=== PATIENT | female | born 1995 | race Hispanic/Latino ===

== ENCOUNTER 2018-04-27 20:34 | Observation (INO) | payer OTHER ==
--- OUTSIDE RECORDS SUMMARY | 2018-04-27 20:36 | XMS REPORT ---
:1995 [facility] Address [address] [place] [address] Dr. Le[address] [place] [id number] Care Team Providers Name Role Phone Unavailable Unavailable Unavailable Problems This patient has no known problems. Allergies, Adverse Reactions, Alerts This patient has no known allergies or adverse reactions. Medications This patient has no known medications.
[2018-04-27] MEDS ORDERED: NA CHLORIDE 0.9% 1,000 ML ONE (21:33)
[2018-04-27] MEDS ORDERED: ONDANSETRON 4 MG/2 ML VIAL ONE (21:33)
[2018-04-27 22:15] LABS: Urine Blood 3+ (NEG); Urine Glucose NEGATIVE (NEG); Urine Protein 3+ (NEG); Urine Specific Gravity >1.030 (1.005-1.030); Urine pH 5.5 (5.0-7.0)
[2018-04-27 22:22] LABS: ALT/SGPT 27 U/L (12-78); AST/SGOT 17 U/L (15-37); Albumin 2.8 g/dL (3.4-5.0); Alkaline Phosphatase 131 U/L (45-117); BUN Blood Urea Nitrogen 12 mg/dL (7-18); Bicarbonate 26 mmol/L (21-32); Bilirubin Direct < 0.1 mg/dL (0-0.2); Bilirubin Total 0.3 mg/dL (0.2-1.0); Glucose Level 89 mg/dL (74-106); Lipase 119 U/L (73-393); Potassium 3.7 mmol/L (3.5-5.1); Protein, Total 7.2 g/dL (6.4-8.2); Sodium Level 140 mmol/L (136-145)
[2018-04-27 22:25] LABS: Absolute Lymphocytes (CBC) 0.4 K/uL (0.7-4.9); Absolute Monocytes 0.5 K/uL (0.1-1.3); Absolute Neutrophil 7.6 K/uL (1.8-8.0); Basophils % 0.2 % (0-1.3); Eosinophils % 0.2 % (0-4.4); Hematocrit 35.9 % (36.0-45.0); Lymphocytes % 5.2 % (15.3-44.8); MPV 8.2 fL (7.6-11.3); Monocytes % 5.6 % (3.3-12.3); RBC Red Blood Cell Count 4.16 M/uL (3.86-4.86)
[2018-04-27 22:52] LABS: Blood Morphology Comment NOT SEEN (NOT SEEN); Platelet Estimate ADEQ; Urine White Blood Cell Casts OK
--- NOTE | 2018-04-27 23:36 | ER ---
Nurse's Notes [facility] Name: Sumaya Whitt Age: 22 yrs Sex: Female : 1995 Arrival Date: 04/27/2018 Time: 20:37 Bed 28 Private MD: Diagnosis: Cholelithiasis;Vomiting;Dehydration Presentation: 04/27 20:56 Presenting complaint: Patient states: Nausea, vomiting, chills, fever that began today; lp1 Diarrhea x 3 days; Denies any burning with urination. Transition of care: patient was not received from another setting of care. Onset of symptoms was April 27, 2018. Risk Assessment: Do you want to hurt yourself or someone else? Patient reports no desire to harm self or others. Initial Sepsis Screen: Does the patient meet any 2 criteria? No. Patient's initial sepsis screen is negative. Does the patient have a suspected source of infection? No. Patient's initial sepsis screen is negative. Care prior to arrival: None. 20:56 Method Of Arrival: Ambulatory lp1 20:56 Acuity: CIARA 3 lp1 INSULATOR TESTER: 20:59 LMP 04/27/2018 lp1 Historical: - Allergies: 20:59 No Known Allergies; lp1 - Home Meds: 20:59 None [Active]; lp1 - PMHx: 20:59 None; lp1 - PSHx: 20:59 ; lp1 - Immunization history:: Adult Immunizations up to date. - Social history:: Smoking status: Patient/guardian denies using tobacco. - Ebola Screening: : No symptoms or risks identified at this time. - Family history:: not pertinent. - Hospitalizations: : No recent hospitalization is reported. Screenin:59 Abuse screen: Denies threats or abuse. Denies injuries from another. Nutritional lp1 screening: No deficits noted. Tuberculosis screening: No symptoms or risk factors identified. Fall Risk None identified. Assessment: 21:05 General: Appears in no apparent distress. obese, Behavior is calm, cooperative, ca1 appropriate for age. Pain: Complains of pain in abdomen Pain does not radiate. Pain currently is 3 out of 10 on a pain scale. Neuro: Level of Consciousness is awake, alert, obeys commands, Oriented to person, place, time, situation. Cardiovascular: Heart tones S1 S2 present Capillary refill < 3 seconds Patient's skin is warm and dry. Respiratory: Airway is patent Respiratory effort is even, unlabored, Respiratory pattern is regular, symmetrical. GI: Abdomen is round non-distended, Bowel sounds present X 4 quads. Abd is soft Abdomen is tender to palpation Reports diarrhea, nausea, vomiting, since 2 days ago. : Urine is cloudy. EENT: No signs and/or symptoms were reported regarding the EENT system. Derm: Skin is intact, is healthy with good turgor, Skin is pink, warm \T\ dry. Musculoskeletal: Circulation, motion, and sensation intact. 22:00 Reassessment: Patient appears in no apparent distress at this time. Patient and/or ca1 family updated on plan of care and expected duration. Pain level reassessed. Patient is alert, oriented x 3, equal unlabored respirations, skin warm/dry/pink. 23:10 Reassessment: Patient appears in no apparent distress at this time. Patient and/or ca1 family updated on plan of care and expected duration. Pain level reassessed. Patient is alert, oriented x 3, equal unlabored respirations, skin warm/dry/pink. Pt eating with significant other at bedside. 04/28 00:30 Reassessment: Patient appears in no apparent distress at this time. Patient and/or ca1 family updated on plan of care and expected duration. Pain level reassessed. Patient is alert, oriented x 3, equal unlabored respirations, skin warm/dry/pink. Dr. Meza at bedside. Vital Signs: 04/27 20:59 BP 139 / 93; Pulse 132; Resp 18; Temp 98.4(O); Pulse Ox 99% on R/A; Weight 119.75 kg lp1 (R); Height 5 ft. 3 in. (160.02 cm); Pain 8/10; 22:02 BP 127 / 83; Pulse 114; Resp 19; Pulse Ox 99% on R/A; ca1 23:10 BP 127 / 96; Pulse 104; Resp 19; Pulse Ox 100% on R/A; ca1 23:14 Temp 100.7; ca1 04/28 00:33 BP 124 / 71; Pulse 102; Resp 19; Pulse Ox 100% on R/A; ca1 04/27 20:59 Body Mass Index 46.77 (119.75 kg, 160.02 cm) lp1 ED Course: 04/27 20:37 Patient arrived in ED. es 20:58 Triage completed. lp1 20:58 Arm band placed on left wrist. lp1 21:05 Will Guaman MD is Attending Physician. rn 21:05 Patient has correct armband on for positive identification. Placed in gown. Bed in low ca1 position. Call light in reach. Side rails up X2. Pulse ox on. NIBP on. Warm blanket given. 21:16 Lidya Mohr, DIXON is Primary Nurse. ca1 21:42 US Abdomen Limited In Process Unspecified. EDMS 21:45 Inserted saline lock: 20 gauge in left antecubital area, using aseptic technique. Blood ca1 collected. 23:35 Henrik Meza MD is Hospitalizing Provider. rn 04/28 00:33 No provider procedures requiring assistance completed. Patient admitted, IV remains in ca1 place. Administered Medications: 04/27 21:50 Drug: NS 0.9% 1000 ml Route: IV; Rate: 1000 ml; Site: left antecubital; ca1 23:54 Follow up: Response: No adverse reaction; IV Status: Completed infusion ca1 04/28 00:34 Follow up: IV Status: Completed infusion ca1 04/27 21:51 Drug: Zofran 4 mg Route: IVP; Site: left antecubital; ca1 23:54 Follow up: Response: No adverse reaction; Nausea is decreased ca1 23:53 Drug: Motrin 800 mg Route: PO; ca1 04/28 00:34 Follow up: Response: No adverse reaction; Temperature is decreased ca1 Outcome: 04/27 23:35 Decision to Hospitalize by Provider. rn 04/28 01:00 Admitted to Tele accompanied by tech, via wheelchair, room 429, with chart, Report ca1 called to Betsy Houser RN Condition: stable Instructed on the need for admit, Demonstrated understanding of instructions. 01:20 Patient left the ED. rv Signatures: Dispatcher [employer] Hoa Murphy Roman, MD MD rn Pena, Laura, RN RN lp1 Karl Jasmine RN RN rv Lidya Mohr RN RN ca1 Corrections: (The following items were deleted from the chart) 04/27 21:00 20:59 119.75 kg Reported; Height 5 ft. 3 in.; BMI: 46.7; Pain 8/10; lp1 lp1
--- NOTE | 2018-04-27 23:36 | EDPHYS ---
Physician Documentation [facility] Name: Sumaya Whitt Age: 22 yrs Sex: Female : 1995 Arrival Date: 04/27/2018 Time: 20:37 Bed 28 Private MD: ED Physician Will Guaman HPI: 04/27 23:31 This 22 yrs old Female presents to ER via Ambulatory with complaints of Fever, rn Vomiting/Diarrhea. 23:31 The patient reports fever, not measured (subjective). Onset: The symptoms/episode rn began/occurred today. Modifying factors: there are no obvious modifying factors. Severity of symptoms: At their worst the symptoms were moderate in the emergency department the symptoms are unchanged. The patient has not experienced similar symptoms in the past. Reports 1 month post-, + fever/chills/vomiting/diarrhea/upper abd pain, began today. . CELL STRIPPER: 20:59 LMP 04/27/2018 lp1 Historical: - Allergies: 20:59 No Known Allergies; lp1 - Home Meds: 20:59 None [Active]; lp1 - PMHx: 20:59 None; lp1 - PSHx: 20:59 ; lp1 - Immunization history:: Adult Immunizations up to date. - Social history:: Smoking status: Patient/guardian denies using tobacco. - Ebola Screening: : No symptoms or risks identified at this time. - Family history:: not pertinent. - Hospitalizations: : No recent hospitalization is reported. ROS: 23:32 Constitutional: + fever/chills Eyes: Negative for injury, pain, redness, and discharge, rn Neck: Negative for injury, pain, and swelling, Cardiovascular: Negative for chest pain, palpitations, and edema, Respiratory: Negative for shortness of breath, cough, wheezing, and pleuritic chest pain, Abdomen/GI: + abd pain/nausea/vomiting Back: Negative for injury and pain, MS/Extremity: Negative for injury and deformity, Skin: Negative for injury, rash, and discoloration, Neuro: Negative for headache, weakness, numbness, tingling, and seizure. Exam: 23:32 Constitutional: This is a well developed, well nourished patient who is awake, alert, rn and in no acute distress. Head/Face: Normocephalic, atraumatic. Eyes: Pupils equal round and reactive to light, extra-ocular motions intact. Lids and lashes normal. Conjunctiva and sclera are non-icteric and not injected. Cornea within normal limits. Periorbital areas with no swelling, redness, or edema. Cardiovascular: Regular rate and rhythm with a normal S1 and S2. No gallops, murmurs, or rubs. Normal PMI, no JVD. No pulse deficits. Respiratory: Lungs have equal breath sounds bilaterally, clear to auscultation and percussion. No rales, rhonchi or wheezes noted. No increased work of breathing, no retractions or nasal flaring. Abdomen/GI: soft, + tender epigastric region, no peritoneal signs, neg adame Skin: Warm, dry with normal turgor. Normal color with no rashes, no lesions, and no evidence of cellulitis. MS/ Extremity: Pulses equal, no cyanosis. Neurovascular intact. Full, normal range of motion. Equal circumference. Vital Signs: 20:59 BP 139 / 93; Pulse 132; Resp 18; Temp 98.4(O); Pulse Ox 99% on R/A; Weight 119.75 kg lp1 (R); Height 5 ft. 3 in. (160.02 cm); Pain 8/10; 22:02 BP 127 / 83; Pulse 114; Resp 19; Pulse Ox 99% on R/A; ca1 23:10 BP 127 / 96; Pulse 104; Resp 19; Pulse Ox 100% on R/A; ca1 23:14 Temp 100.7; ca1 04/28 00:33 BP 124 / 71; Pulse 102; Resp 19; Pulse Ox 100% on R/A; ca1 04/27 20:59 Body Mass Index 46.77 (119.75 kg, 160.02 cm) lp1 MDM: 04/27 21:05 Patient medically screened. rn 23:32 Differential diagnosis: viral Infection, bacterial infection, UTI, gastroenteritis, rn cholecystitis, appendicitis, enteritis. Data reviewed: vital signs, nurses notes, lab test result(s), radiologic studies, ultrasound, and as a result, I will admit patient. Counseling: I had a detailed discussion with the patient and/or guardian regarding: the historical points, exam findings, and any diagnostic results supporting the discharge/admit diagnosis, lab results, radiology results, the need for further work-up and treatment in the hospital. Admission orders: after a detailed discussion of the patient's condition and case, the admit orders are written by me. ED course: Pt with cholelithiasis, elevated alk phos, + febrile and still tachycardic, normal cbc. Consulted with Dr. Mccarthy, will admit to hospitalist service, with GI and surgical consult. Possible early cholecystitis/choledocho. 04/27 21:15 Order name: Basic Metabolic Panel; Complete Time: 22:35 rn 04/27 21:15 Order name: CBC with Diff; Complete Time: 22:55 rn 04/27 21:15 Order name: Hepatic Function; Complete Time: 22:35 rn 04/27 21:15 Order name: Lipase; Complete Time: 22:35 rn 04/27 21:16 Order name: Flu; Complete Time: 22:35 rn 04/27 22:02 Order name: Urine Dipstick--Ancillary (enter results); Complete Time: 22:35 [facility] 04/27 21:15 Order name: IV Saline Lock; Complete Time: 21:58 rn 04/27 21:15 Order name: Labs collected and sent; Complete Time: 21:58 rn 04/27 21:15 Order name: US Abdomen Limited rn 04/27 22:02 Order name: Urine --Ancillary (enter results); Complete Time: 22:35 [facility] 04/27 22:52 Order name: CBC Smear Scan; Complete Time: 22:55 EDAR 04/27 21:15 Order name: Urine Dipstick-Ancillary (obtain specimen); Complete Time: 21:42 rn 04/27 21:15 Order name: Urine Test (obtain specimen); Complete Time: 21:42 rn Administered Medications: 21:50 Drug: NS 0.9% 1000 ml Route: IV; Rate: 1000 ml; Site: left antecubital; ca1 23:54 Follow up: Response: No adverse reaction; IV Status: Completed infusion ca1 04/28 00:34 Follow up: IV Status: Completed infusion ca1 04/27 21:51 Drug: Zofran 4 mg Route: IVP; Site: left antecubital; ca1 23:54 Follow up: Response: No adverse reaction; Nausea is decreased ca1 23:53 Drug: Motrin 800 mg Route: PO; ca1 02/20 00:34 Follow up: Response: No adverse reaction; Temperature is decreased ca1 Disposition: 04/27/18 23:35 Hospitalization ordered by Henrik Meza for Observation. Preliminary diagnosis are Cholelithiasis, Vomiting, Dehydration. - Bed requested for Telemetry/MedSurg (observation). - Status is Observation. rv - Condition is Stable. - Problem is new. - Symptoms have improved. UTI on Admission? No Signatures: Dispatcher [employer] EDMS Elizabeth Ho RN RN Will Guaman MD MD rn Pena, Laura RN RN lp1 Karl Jasmine, RN RN rv Onur, Lidya, RN RN ca1 Corrections: (The following items were deleted from the chart) 00:40 04/27 23:35 Hospitalization Ordered by Henrik Meza MD for Observation. Preliminary diagnosis is Cholelithiasis; Vomiting; Dehydration. Bed requested for Telemetry/MedSurg (observation). Status is Observation. Condition is Stable. Problem is new. Symptoms have improved. UTI on Admission? No. rn 04/28 01:20 00:40 04/27/2018 23:35 Hospitalization Ordered by Henrik Meza MD for Observation. rv Preliminary diagnosis is Cholelithiasis; Vomiting; Dehydration. Bed requested for Telemetry/MedSurg (observation). Status is Observation. Condition is Stable. Problem is new. Symptoms have improved. UTI on Admission? No. mw
[2018-04-28] MEDS ORDERED: IBUPROFEN 400 MG TAB ONE (00:04)
--- NOTE | 2018-04-28 00:59 | P.HP ---
Certification for Inpatient Patient admitted to: Inpatient With expected LOS: >2 Midnights Practitioner: I am a practitioner with admitting privileges, knowledge of patient current condition, hospital course, and medical plan of care. Services: Services provided to patient in accordance with Admission requirements found in Title 42 Section 412.3 of the Code of Federal Regulations Patient History Date of Service: 04/28/18 Reason for admission: cholelithiasis, fever History of Present Illness: Ms Whitt is a 22 years old woman, who recently delivered a baby, came to ED complaining of abdominal pain, associated with nausea and vomiting, fever and diarrhea. Her symptoms started this morning. Abdominal pain is localized on epigastric area and RUQ. No fever in ER. No fever, Lab work shows normal WBC count, normal transaminases with mildly elevated alk phos. UA has 3+ blood and 3 + proteines. Gallbladder US shows cholelithiasis, normal gallbladder wall and CBD diameter. Allergies NKDA Allergy (Uncoded 02/20/15 14:31) Unknown Home medications list reviewed: Yes - Past Medical/Surgical History -: obesity Past Surgical History: Reviewed- Non-Contributory - Family History Family History: Reviewed- Non-Contributory - Social History Smoking Status: Former smoker Alcohol use: Yes CD- Drugs: No Place of Residence: Home Review of Systems 10-point ROS is otherwise unremarkable Physical Examination - Physical Exam General: Alert, In no apparent distress HEENT: Atraumatic, PERRLA, Mucous membr. moist/pink, EOMI, Sclerae nonicteric Neck: Supple, 2+ carotid pulse no bruit, No LAD, Without JVD or thyroid abnormality Respiratory: Clear to auscultation bilaterally, Normal air movement Cardiovascular: Regular rate/rhythm, Normal S1 S2 Gastrointestinal: Normal bowel sounds, Tenderness (RUQ and epigastrium to palpation.) Musculoskeletal: No tenderness Integumentary: No rashes Neurological: Normal speech, Normal strength at 5/5 x4 extr, Normal tone, Normal affect Lymphatics: No axilla or inguinal lymphadenopathy - Studies Laboratory Data (last 24 hrs) 04/27/18 21:52: WBC 8.5, Hgb 11.8 L, Hct 35.9 L, Plt Count 333 04/27/18 21:52: Sodium 140, Potassium 3.7, BUN 12, Creatinine 1.17, Glucose 89, Total Bilirubin 0.3, AST 17, ALT 27, Alkaline Phosphatase 131 H, Lipase 119 Microbiology Data (last 24 hrs): 04/27/18 21:52 Nasopharnyx Influenza Type A Antigen Screen - Final 04/27/18 21:52 Nasopharnyx Influenza Type B Antigen Screen - Final Assessment and Plan - Problems (Diagnosis) (1) Cholelithiasis Current Visit: Yes Status: Acute Qualifiers: Cholelithiasis location: gallbladder Cholecystitis presence: without cholecystitis Biliary obstruction: without biliary obstruction Qualified Code(s): K80.20 - Calculus of gallbladder without cholecystitis without obstruction (2) Fever Current Visit: Yes Status: Acute Qualifiers: Fever type: unspecified Qualified Code(s): R50.9 - Fever, unspecified (3) Nausea and vomiting Current Visit: Yes Status: Acute Qualifiers: Vomiting type: unspecified Vomiting Intractability: unspecified Qualified Code(s): R11.2 - Nausea with vomiting, unspecified - Plan Will admit the patient due to cholelithiasis with fever. No clear etiology. Will order CT abd/pelvis, continue NPO, start empiric antibiotics, Dr Mccarthy will see the patient. - Advance Directives Does patient have a Living Will: No Does patient have a Durable POA for Healthcare: No - Code Status/Comfort Care Code Status Assessed: Yes Code Status: Full Code
[2018-04-28] MEDS ORDERED: ONDANSETRON 4 MG/2 ML VIAL IV PRN (01:24)
[2018-04-28] MEDS ORDERED: ACETAMINOPHEN 500 MG TAB PO PRN (01:24)
[2018-04-28] MEDS: NA CHLORIDE 0.9% 1,000 ML IV SCH ×2 (02:18→11:24)
[2018-04-28 02:24] VITALS: BMI 47.1
[2018-04-28] MEDS ORDERED: CIPROFLOXACIN 400mg IV 400 MG/200 ML BAG IV SCH (03:00)
[2018-04-28 03:07] VITALS: O2SAT 100
[2018-04-28] MEDS: METRONIDAZOLE 500mg IVPB 500 MG/100 ML BAG IV SCH ×2 (03:21→08:24)
--- NOTE | 2018-04-28 08:18 | RAD REPORT ---
EXAM DESCRIPTION: US - Abdomen Exam Limited - 04/27/2018 9:41 pm CLINICAL HISTORY: Abdominal pain. FINDINGS: Multiple small gallstones. The gallbladder wall is not thickened The biliary tree is normal caliber. IMPRESSION: Cholelithiasis without evidence cholecystitis
[2018-04-28 14:53] VITALS: BP 136/75; TEMP 98
--- NOTE | 2018-04-28 17:41 | CON ---
Date of Consultation: 04/28/2018 Brief History Of Present Illness: The patient is a 22-year-old female, who recently had a b adonay, who came to the ER with complaints of abdominal pain beginning approximately yesterday, associat ed with nausea, vomiting, and some diarrhea. The diarrhea was persistent over the course of approxim ately 2 days, and she had some subjective fevers however she did not check the actual amount. Her sy mptoms did not progress more than 1 day prior to this. She has had primarily pain located in the epi gastric right upper quadrant. She states that the pain had no other radiation. Otherwise, she has n ot had similar episodes before in the past of this severity, but has had some minor episodes of simil arity before in the past, but nothing on this level. She believes it is associated with greasy meals recently eaten. Otherwise, no other aggravating or alleviating factors. No sick contacts. No rece nt travel. Past Medical History: Significant for obesity. Past Surgical History: Negative. Family History: Reviewed, noncontributory. Social History: She states she quit smoking. She drinks alcohol recreationally. She denies any rec reational drug use. Allergies: NO KNOWN DRUG ALLERGIES. Medications: Include no home medications. Review of Systems: A 10-point review of systems other than HPI, denies. Physical Examination: General: At the time of my examination, she is awake, alert, and oriented. Her BMI is 47.1. Vital Signs: Her blood pressure 134/83, pulse of 65, respiratory rate 16, temperature 97.0. Psychiatric: She is appropriate, conversive. HEENT: She is normocephalic. Sclerae icteric. Mucous membranes are moist. Oropharynx clear. Neck: Supple. No JVD. Chest: Normal expansion and excursion. Cardiovascular: Regular rate and rhythm. Pulmonary: Clear to auscultation bilaterally. Abdomen: Soft, nontender, nondistended. No rebound. No guarding. No focal peritonitis. Negative Howard sign. No hernia is appreciated. Abdomen is essentially benign and obese. Extremities: No clubbing, cyanosis, or edema. Skin: Warm and dry. Laboratory Data: Reveals white blood cell count of 8.5, hemoglobin 11.8 over hematocrit of 35.9, mikaela telet count is 333, neutrophils are 88.8%. Her sodium is 140, potassium 3.7, chloride 108, carbon di oxide 26, BUN 12, creatinine 1.1, glucose is 89, calcium 8.2, total bilirubin 0.3, direct bilirubin 0 .2, AST 17, ALT 27, alkaline phosphatase of 131, lipase is 119. UA showed 3+ total protein, negative urine test, 3+ blood. She had a CT scan of the abdomen and pelvis as well as an abdominal ultrasound. The abdominal ultrasound was officially read as multiple small gallstones. Gallbladder wall is not thickened. The biliary tree is normal in caliber. The official impression is cholelith iasis without evidence of cholecystitis. CT scan exam is currently pending. Assessment And Plan: This is a 22-year-old female who came in with symptomatic cholelithiasis, now w ith essentially no abdominal pain and a benign abdominal exam. 1.Start p.o. hydration and advance diet as tolerated to a nongreasy meal. 2.I explained risks, benefits, and alternatives of operative versus nonoperative management. She ag jaime to proceed with nonoperative management. The time to include dietary modification, to be on a s trict gallbladder diet, and return to my clinic within 2 weeks with any concerns regarding her change in mind so that she can consider surgical intervention at that time, which would be a laparoscopic c holecystectomy, possible open, and indicated procedures. She would like to proceed however with nono perative management and as such, I recommend starting diet as described above. Thank you for this interesting consult. SHAI/BRIGITTE Voice ID: [id number] Report ID: [id number]
--- NOTE | 2018-04-28 18:24 | RAD REPORT ---
EXAM DESCRIPTION: CT - Abdomen Pelvis Wo Contrast - 04/28/2018 6:04 am CLINICAL HISTORY: 22-year-old female with abdominal pain. TECHNIQUE: Axial CT images of the abdomen and pelvis was performed. Sagittal and coronal reconstructed images we re then performed. The CT study is performed according to ALARA (as low as reasonably achievable) or ALARA/IMAGE GENTLY, with automatic adjustment of mA and/or kV according to patient size. Performed on: 04/28/2018 at 5:35 AM COMPARISON: None. FINDINGS: Lung bases: The lung bases are clear. ABDOMEN: Liver: The liver is normal in size and configuration. No focal hepatic abnormalities are appreciated on this unenhanced scan. Liver attenuation is within normal limits. Gallbladder and bile duct: The gallbladder is well distended. There is increased density layering wit hin the dependent portion of the gallbladder lumen which may reflect small stones or sludge. There is no biliary ductal dilatation. Pancreas: The pancreas is grossly normal in size and configuration. Spleen:The spleen is normal in size, configuration and attenuation. No focal splenic abnormalities ar e appreciated on this unenhanced scan. Adrenal: Glands: The adrenal glands are normal in size and configuration. Kidneys: The kidneys are normal in size and configuration. There is no evidence of hydronephrosis. Th ere is no evidence of nephrolithiasis. No focal renal abnormalities are identified. Stomach: The stomach is grossly normal. There is no definite hiatal hernia. Bowel: The bowel gas pattern is non specific and non obstructive. Appendix: The appendix is normal. Free air: There is no evidence of free air. Free fluid: There is no evidence of free fluid. Vasculature: The aorta is normal in caliber and contour. The interior vena cava is grossly unremarkab le. Lymphadenopathy: No pathologic lymphadenopathy is identified. Bladder: The bladder is well distended and smooth in contour. Reproductive: The uterus is grossly within normal limits. Bones: No acute osseous abnormalities are identified. Soft tissues: No focal soft tissue abnormalities are identified. There is very mild infiltration of t he subcutaneous fat along the lower anterior abdominal wall. IMPRESSION: 1. Sludge and/or stones within the dependent portion of the gallbladder lumen. 2. Otherwise, unremarkable unenhanced CT scan of the abdomen and pelvis. There is very mild nonspecif ic infiltration of the subcutaneous fat along the lower anterior abdominal wall. Electronically signed by Janet Shukla DO 04/28/2018 5:55 AM BAIL ATTACHER Due to temporary technical issues with the PACS/Fluency reporting system, reports are being signed by the in house radiologist as a courtesy to ensure prompt reporting. The interpreting radiologist is f ully responsible for the content of the report.
== END 2018-04-28 16:48 | disposition home or self-care (01) ==
LOC: ER 20:34 → INTOOBSV 04-28 00:43 → ERHOLD 04-28 00:43 → 4TH 04-28 01:08
PROVIDERS: ADMIT Internal Medicine; ATTEND Internal Medicine
DX: O99.63 Diseases of the digestive system complicating the puerperium (principal); K80.20 Calculus of gallbladder without cholecystitis without obstruction; E66.9 Obesity, unspecified; Z68.42 Body mass index [BMI] 45.0-49.9, adult
CPT/HCPCS: 36415; 74176; 76705; 80048; 80076; 81003; 81025; 83690; 85025; 87804; 96361; 96374; 99285; G0378; J0744; J2405; J7030

== ENCOUNTER 2018-04-30 02:33 | Emergency (ER) | payer OTHER ==
--- OUTSIDE RECORDS SUMMARY | 2018-04-30 02:35 | XMS REPORT ---
:1995 Author Organization [facility] Address [address] [place] [address] Dr. Leos [address] [place] [id number] Care Team Providers Name Role Phone Unavailable Unavailable Unavailable Problems This patient has no known problems. Allergies, Adverse Reactions, Alerts This patient has no known allergies or adverse reactions. Medications This patient has no known medications.
[2018-04-30 04:12] LABS: Absolute Lymphocytes (CBC) 0.9 K/uL (0.7-4.9); Absolute Monocytes 0.6 K/uL (0.1-1.3); Basophils % 0.4 % (0-1.3); Hematocrit 33.5 % (36.0-45.0); Lymphocytes % 13.5 % (15.3-44.8); MPV 8.1 fL (7.6-11.3); Monocytes % 8.6 % (3.3-12.3)
[2018-04-30 04:24] LABS: ALT/SGPT 32 U/L (12-78); AST/SGOT 28 U/L (15-37); Alkaline Phosphatase 145 U/L (45-117); BUN Blood Urea Nitrogen 14 mg/dL (7-18); Bicarbonate 27 mmol/L (21-32); Bilirubin Direct < 0.1 mg/dL (0-0.2); Bilirubin Total 0.2 mg/dL (0.2-1.0); Glucose Level 103 mg/dL (74-106); Lipase 158 U/L (73-393); Protein, Total 7.1 g/dL (6.4-8.2); Sodium Level 142 mmol/L (136-145)
--- NOTE | 2018-04-30 04:58 | ER ---
Nurse's Notes [facility] Name: Sumaya Whitt Age: 22 yrs Sex: Female : 1995 Arrival Date: 04/30/2018 Time: 02:34 Bed 14 Private MD: Diagnosis: Upper abdominal pain, unspecified Presentation: 04/30 02:40 Presenting complaint: Patient states: that she was here 2 days ago and was diagnosis fc with gallstones. She felt ok and was sent home. Then approx 20 minutes [employer] she started to have severe right upper abd pain along with epigastric pain. Also has nausea, vomiting and diarrhea. Transition of care: patient was not received from another setting of care. Onset of symptoms was April 30, 2018 at 02:20. Risk Assessment: Do you want to hurt yourself or someone else? Patient reports no desire to harm self or others. Initial Sepsis Screen: Does the patient meet any 2 criteria? No. Patient's initial sepsis screen is negative. Does the patient have a suspected source of infection? No. Patient's initial sepsis screen is negative. Care prior to arrival: None. 02:40 Method Of Arrival: Ambulatory 02:40 Acuity: CIARA 3 fc WEAVER HAND: 02:40 [facility] 04/24/2018 fc Historical: - Allergies: 03:12 No Known Allergies; fc - Home Meds: 03:12 None [Active]; fc - PMHx: 03:12 Gallstones; fc - PSHx: 03:12 ; fc - Immunization history:: Last tetanus immunization: up to date Flu vaccine is up to date. - Social history:: Smoking status: Patient/guardian denies using tobacco. - Ebola Screening: : Patient negative for fever greater than or equal to 101.5 degrees Fahrenheit, and additional compatible Ebola Virus Disease symptoms Patient denies exposure to infectious person Patient denies travel to an Ebola-affected area in the 21 days before illness onset. Screenin:58 Abuse screen: Denies threats or abuse. Nutritional screening: No deficits noted. fc Tuberculosis screening: No symptoms or risk factors identified. Fall Risk None identified. Assessment: 03:30 General: Appears in no apparent distress. Behavior is calm, cooperative, appropriate ea for age. Pain: Complains of pain in right upper quadrant. Neuro: Level of Consciousness is awake, alert, obeys commands, Oriented to person, place, time, situation. Respiratory: Airway is patent Respiratory effort is even, unlabored, Respiratory pattern is regular, symmetrical. GI: Abdomen is non-distended, obese. : No signs and/or symptoms were reported regarding the genitourinary system. Derm: Skin is dry, Skin is pale, Skin temperature is warm. 04:41 Reassessment: Patient and/or family updated on plan of care and expected duration. Pain ea level reassessed. Patient is alert, oriented x 3, equal unlabored respirations, skin warm/dry/pink. 05:35 Reassessment: Patient and/or family updated on plan of care and expected duration. Pain ea level reassessed. Patient is alert, oriented x 3, equal unlabored respirations, skin warm/dry/pink. Discharge instructions given to patient, verbalized the understanding of instruction. Vital Signs: 02:40 BP 129 / 91; Pulse 86; Resp 20; Temp 98.9(O); Pulse Ox 100% on R/A; Weight 119.75 kg fc (R); Height 5 ft. 3 in. (160.02 cm) (R); Pain 10/10; 03:50 BP 120 / 78; Pulse 90; Resp 18; Pulse Ox 99% ; ea 04:50 BP 128 / 62; Pulse 88; Resp 18; Pulse Ox 99% ; ea 02:40 Body Mass Index 46.77 (119.75 kg, 160.02 cm) ED Course: 02:34 Patient arrived in ED. ds1 02:40 Arm band placed on Patient placed in an exam room, on a stretcher. fc 02:56 Castro Mcgovern MD is Attending Physician. gs 02:57 Triage completed. fc 03:15 Loni Arreguin RN is Primary Nurse. ea 03:30 Patient has correct armband on for positive identification. Bed in low position. Call ea light in reach. Side rails up X2. 04:10 Inserted saline lock: 22 gauge in right antecubital area, using aseptic technique. ea Blood collected. 04:58 Manny Staton MD is Referral Physician. gs 05:35 No provider procedures requiring assistance completed. IV discontinued, intact, ea bleeding controlled, No redness/swelling at site. Pressure dressing applied. Administered Medications: No medications were administered Outcome: 04:58 Discharge ordered by . gs 05:35 Condition: improved ea 05:35 Discharge instructions given to patient, Instructed on discharge instructions, follow up and referral plans. medication usage, Demonstrated understanding of instructions, follow-up care, medications, Prescriptions given X 2. 05:41 Discharged to home ambulatory, with significant other. ea 05:42 Patient left the ED. ea Signatures: Sindi Cantor RN Ileana Beard ds1 Loni Arreguin RN RN ea Starr, Gregory, MD MD gs
--- NOTE | 2018-04-30 04:59 | EDPHYS ---
Physician Documentation [facility] Name: Sumaya Whitt Age: 22 yrs Sex: Female : 1995 Arrival Date: 04/30/2018 Time: 02:34 Bed 14 Private MD: ED Physician Castro Mcgovern HPI: 04/30 04:56 This 22 yrs old Female presents to ER via Ambulatory with complaints of gs Gallbladder Pain, Nausea/Vomiting. 04:56 The patient presents to the emergency department with nausea, vomiting, abdominal pain, gs of the right upper quadrant and right lower quadrant. Onset: The symptoms/episode began/occurred acutely, 3 day(s) ago. Possible causes: unknown. The symptoms are aggravated by nothing. The symptoms are alleviated by nothing. Associated signs and symptoms: Pertinent positives: abdominal pain. Severity of symptoms: At their worst the symptoms were severe in the emergency department the symptoms have improved markedly. The patient has experienced similar episodes in the past, several times. The patient has been recently been admitted at [facility], was discharged yesterday. [place]: 02:40 LMP 04/24/2018 fc Historical: - Allergies: 03:12 No Known Allergies; fc - Home Meds: 03:12 None [Active]; fc - PMHx: 03:12 Gallstones; fc - PSHx: 03:12 ; fc - Immunization history:: Last tetanus immunization: up to date Flu vaccine is up to date. - Social history:: Smoking status: Patient/guardian denies using tobacco. - Ebola Screening: : Patient negative for fever greater than or equal to 101.5 degrees Fahrenheit, and additional compatible Ebola Virus Disease symptoms Patient denies exposure to infectious person Patient denies travel to an Ebola-affected area in the 21 days before illness onset. ROS: 04:56 All other systems are negative. gs Exam: 04:56 Head/Face: Normocephalic, atraumatic. Eyes: Pupils equal round and reactive to light, gs extra-ocular motions intact. Lids and lashes normal. Conjunctiva and sclera are non-icteric and not injected. Cornea within normal limits. Periorbital areas with no swelling, redness, or edema. ENT: Nares patent. No nasal discharge, no septal abnormalities noted. Tympanic membranes are normal and external auditory canals are clear. Oropharynx with no redness, swelling, or masses, exudates, or evidence of obstruction, uvula midline. Mucous membranes moist. Neck: Trachea midline, no thyromegaly or masses palpated, and no cervical lymphadenopathy. Supple, full range of motion without nuchal rigidity, or vertebral point tenderness. No Meningismus. Chest/axilla: Normal chest wall appearance and motion. Nontender with no deformity. No lesions are appreciated. Cardiovascular: Regular rate and rhythm with a normal S1 and S2. No gallops, murmurs, or rubs. Normal PMI, no JVD. No pulse deficits. Respiratory: Lungs have equal breath sounds bilaterally, clear to auscultation and percussion. No rales, rhonchi or wheezes noted. No increased work of breathing, no retractions or nasal flaring. Back: No spinal tenderness. No costovertebral tenderness. Full range of motion. Skin: Warm, dry with normal turgor. Normal color with no rashes, no lesions, and no evidence of cellulitis. MS/ Extremity: Pulses equal, no cyanosis. Neurovascular intact. Full, normal range of motion. Neuro: Awake and alert, GCS 15, oriented to person, place, time, and situation. Cranial nerves II-XII grossly intact. Motor strength 5/5 in all extremities. Sensory grossly intact. Cerebellar exam normal. Normal gait. 04:56 Constitutional: The patient appears alert, awake. 04:56 Abdomen/GI: Palpation: mild abdominal tenderness, in the right upper quadrant and right lower quadrant, rebound tenderness, is not appreciated. Vital Signs: 02:40 BP 129 / 91; Pulse 86; Resp 20; Temp 98.9(O); Pulse Ox 100% on R/A; Weight 119.75 kg fc (R); Height 5 ft. 3 in. (160.02 cm) (R); Pain 10/10; 03:50 BP 120 / 78; Pulse 90; Resp 18; Pulse Ox 99% ; ea 04:50 BP 128 / 62; Pulse 88; Resp 18; Pulse Ox 99% ; ea 02:40 Body Mass Index 46.77 (119.75 kg, 160.02 cm) MDM: 03:02 Patient medically screened. 04:56 Differential diagnosis: Nonspecific abd pain, gastritis, cholecystitis, pancreatitis. gs Data reviewed: vital signs, nurses notes. Counseling: I had a detailed discussion with the patient and/or guardian regarding: the historical points, exam findings, and any diagnostic results supporting the discharge/admit diagnosis, lab results, the need for outpatient follow up. Response to treatment: the patient's symptoms have markedly improved after treatment, and as a result, I will discharge patient. 05:16 ED course: PRECAUTIONS GIVEN FOR BREAST FEEDING. 04/30 03:02 Order name: Basic Metabolic Panel 04/30 03:02 Order name: CBC with Diff 04/30 03:02 Order name: Hepatic Function 04/30 03:02 Order name: Lipase 04/30 04:15 Order name: CBC with Automated Diff; Complete Time: 04:56 EDMS 04/30 04:26 Order name: Basic Metabolic Panel; Complete Time: 04:56 EDMS 04/30 03:02 Order name: IV Saline Lock; Complete Time: 03:58 04/30 03:02 Order name: Labs collected and sent; Complete Time: 04:22 04/30 04:26 Order name: Liver (Hepatic) Function; Complete Time: 04:56 EDMS 04/30 04:26 Order name: Lipase; Complete Time: 04:56 EDMS Administered Medications: No medications were administered Disposition: 04/30/18 04:58 Discharged to Home. Impression: Upper abdominal pain, unspecified. - Condition is Stable. - Discharge Instructions: Abdominal Pain, Adult. - Prescriptions for Tylenol- Codeine #4 300-60 mg Oral Tablet - take 1 tablet by ORAL route every 6 hours As needed; 6 tablet. Zofran 4 mg Oral Tablet - take 1 tablet by ORAL route every 12 hours As needed; 10 tablet. - Family Work Release, Medication Reconciliation Form, Thank You Letter, Antibiotic Education, Prescription Opioid Use form. - Follow up: Manny Staton MD; When: 2 - 3 days; Reason: Re-evaluation by your physician. Signatures: Dispatcher [employer] EDHI Sindi Cantor RN RN fc Antunez, Elena, RN RN ea Starr, Gregory, MD MD gs Corrections: (The following items were deleted from the chart) 05:42 04:58 04/30/2018 04:58 Discharged to Home. Impression: Upper abdominal pain, ea unspecified. Condition is Stable. Forms are Medication Reconciliation Form, Thank You Letter, Antibiotic Education, Prescription Opioid Use. Follow up: Manny Staton; When: 2 - 3 days; Reason: Re-evaluation by your physician. gs
[2018-04-30 05:50] VITALS: TEMP 98.9
[2018-04-30 05:52] VITALS: O2SAT 99
[2018-04-30 05:53] VITALS: BP 128/62
== END 2018-04-30 05:42 | disposition home or self-care (01) ==
LOC: ER 02:33
DX: R10.9 Unspecified abdominal pain (principal)
CPT/HCPCS: 36415; 80048; 80076; 83690; 85025; 99283

== ENCOUNTER 2024-02-14 12:20 | Inpatient (IN) | payer OTHER, SELFPAY ==
--- OUTSIDE RECORDS SUMMARY | 2024-02-14 12:24 | XMS REPORT | Continuity of Care Document ---
Author Name Unknown Address [address] [facility] [address] [place] [address] [facility] Address [address] [facility] [address] [place] [address] Care Team Providers Care Compliance Examiner Name Role Phone Vicenta Shay Primary Care Physician [phone] [email or web address]_Neidaa_S Attending Clinician Unavailchrista salazar Doctor Unassigned, [place] Attending Clinician U navailDanielle Ayala MA Attending Clinician UnavailLULA Rolle Attending Clinician Unavailyoel e Only, Ang Db Test Attending Clinician UnavailLula Mckeon Attending Clinician [phone] KYRIE GUTHRIE Attending Clinician Unavailab VICENTA Olsen Attending Clinician UnavailBENITO Maxwell Attending Clinician Unavailable CHINTAN MERIDA Attending Clinician Unav ailable JESSE OLIVIA Attending Clinician Unavailabl ROB MartinezHBen Attending Clinician Unavaila ZACHARY Mota Attending Clinician Unavailable ZACHARY HERNANEDZ Attending Clinician Unavailable ROSANA CRANE Attending Clinician Unavailable TIERRA MORE Attending Clinician Unavail able GC_GCBZW_Latashayala_S Admitting Clinician Unavaila CHINTAN Castle Admitting Clinician Unav ailable Payers Payer Name Policy Type Policy Number Effective Date Expirati on Date Source [employer] MEDICA[employer] [id number] 2019 00:00:00 Problems Condition Name Condition Details Condition Category Status Onset Date Resolution Date Last Treatment Date Treating Clinician Comments Source Preeclamps ia in period Preeclamps ia in period Disease Active 2-22 00:00: 00 [facility] 36 weeks gestation of 36 weeks gestation of Disease Active 2-13 00:00: 00 [facility] Previous section Previous section Disease Active 2-13 00:00: 00 [facility] Patient in clinical research study Patient in clinical research study Disease Active 2019-03 0-15 00:00: 00 [facility] Examinatio n of participan t in clinical trial Examinatio n of participan t in clinical trial Disease Active 918 00:00: 00 Overview: Formattin g of this note is different from the original. Subject is a participa nt in the double-bl ind RCT entitled, A Randomize d Controlle d Trial of Pravastat in to Prevent Preeclamp missy in High Risk Women. Subjects will receive Pravastat in 20mg vs. placebo from (from 12 to 16.6 weeks gestation through delivery Subjects will be followed longitudi michael in . Delivery specimens of cord blood and placenta are required. For ALL hospitali zations contact [email or web address] pager Please contact Kortney Berry NP at or Benito Kiran MD at for more informati on. [facility] BMI 45.0-49.9, adult BMI 45.0-49.9, adult Disease Active 9-10 00:00: 00 [facility] Nausea and vomiting during prior to 22 weeks gestation Nausea and vomiting during prior to 22 weeks gestation Disease Active 9-10 00:00: 00 [facility] Nephrotic range proteinuri a Nephrotic range proteinuri a Disease Active 8-10 00:00: 00 [facility] Supervisio n of high-risk Supervisio n of high-risk Disease Active 7-27 00:00: 00 [facility] History of twin in prior History of twin in prior Disease Active 10-02 00:00: 00 [facility] Multiparit y Multiparit y Disease Active 10-02 00:00: 00 [facility] Obesity in Obesity in Disease Active 10-02 00:00: 00 [facility] History of pre-eclamp missy in prior , currently in third trimester History of pre-eclamp missy in prior , currently in third trimester Disease Active 10-02 00:00: 00 Overview: Formattin g of this note might be different from the original. With prior [facility] History of section History of section Disease Active 03-30 00:00: 00 [facility] Pre-existi ng essential hypertensi on during , antepartum Pre-existi ng essential hypertensi on during , antepartum Disease Active 1 00:00: 00 [facility] Heartburn during , antepartum Heartburn during , antepartum Disease Active 2017-03 0 00:00: 00 [facility] Proteinuri a affecting , antepartum Proteinuri a affecting , antepartum Disease Active 2017-03 0 00:00: 00 [facility] Obesity affecting in third trimester Obesity affecting in third trimester Disease Active 12-02 00:00: 00 [facility] Allergies, Adverse Reactions, Alerts Allergy Name Allergy Type Status Severity Reaction(s) Onset Date Inactive Date Treating Clinician Comments Source NO KNOWN ALLERGIE S Drug Class Active [facility] Social History Social Habit Start Date Stop Date Quantity Comments Source [facility] Sexual orientation U niversity [facility] ASSERTION [facility] Exposure to SARS-CoV-2 (event) 2021-04-10 00:00:00 2021-05-10 20:06:00 Not sure [facility] Alcohol intake 2019-10-03 00:00:00 2019-10-03 00:00:00 0 /d [facility] History of Social function 2019-10-03 00:00:00 2019-10-03 00:00:00 [facility] Tobacco use and exposure 2017-03-18 00:00:00 2017-03-18 00:00:00 Smokeless tobacco non-user [facility] Tobacco Comment 2017-03-18 00:00:00 2017-03-18 00:00:00 denies smoke expsoure [facility] Sex Assigned At 1995 00:00:00 1995 00:00:00 [facility] Smoking Status Start Date Stop Date Source Never smoked tobacco [facility] Medications Ordered Medication Name Filled Medication Name Start Date Stop Date Current Medication? Ordering Clinician Indication Dosage Frequency Signature (SIG) Comments Components Source ondansetron 4 mg disintegrat ing tablet 05-10 00:00: 00 Yes [id number] 4mg Take 1 tablet by mouth every 8 (eight) hours as needed for Nausea and Vomiting (N/V). [facility] benzonatate 100 mg capsule 05-10 00:00: 00 Yes [id number] 200mg Take 2 capsules by mouth every 8 (eight) hours as needed for Cough. [facility] guaiFENesin 400 mg tablet 05-10 00:00: 00 Yes [id number] 400mg Take 1 tablet by mouth every 4 (four) hours as needed for Cough. [facility] enalapril 10 mg tablet 05-02 00:00: 00 Yes [id number] 10mg Take 1 tablet by mouth daily. [facility] vitamin w/FA tablet 05-01 00:00: 00 Yes [id number] 1{tbl} Take 1 tablet by mouth daily. [facility] docusate calcium 240 mg capsule 05-01 00:00: 00 Yes [id number] 240mg Take 1 capsule by mouth once daily as needed for Constipati on. [facility] ferrous sulfate 325 mg (65 mg iron) tablet 05-01 00:00: 00 Yes [id number] 325mg Take 1 tablet by mouth 2 (two) times daily. [facility] ibuprofen 600 mg tablet 05-01 00:00: 00 Yes [id number] 600mg Take 1 tablet by mouth every 6 (six) hours as needed (Pain). Take with food or milk. [facility] labetaloL 100 mg tablet 05-01 00:00: 00 Yes [id number] 100mg Take 1 tablet by mouth every 12 (twelve) hours. [facility] vitamin w/FA tablet 05-01 00:00: 00 Yes [id number] 1{tbl} Take 1 tablet by mouth daily. [facility] enoxaparin (LOVENOX) 40 mg/0.4 mL injection 04-25 00:00: 00 Yes [id number] 40mg inject 0.4 mL under the skin daily. [facility] docusate calcium 240 mg capsule 04-25 00:00: 00 Yes [id number] 240mg Take 1 capsule by mouth once daily as needed for Constipati on. [facility] ibuprofen 600 mg tablet 04-25 00:00: 00 Yes [id number] 600mg Take 1 tablet by mouth every 6 (six) hours as needed (Pain). Take with food or milk. [facility] HYDROcodone -acetaminop hen 5-325 mg tablet 04-25 00:00: 00 Yes [id number] 1{tbl} Take 1 tablet by mouth every 6 (six) hours as needed (Pain scale above 4). Do not exceed 3 grams of acetaminop hen in 24 hours. Indication s: acute pain [facility] ferrous sulfate 325 mg (65 mg iron) tablet 04-25 00:00: 00 Yes [id number] 325mg Take 1 tablet by mouth 2 (two) times daily. [facility] vitamin w/FA tablet 04-25 00:00: 00 Yes [id number] 1{tbl} Take 1 tablet by mouth daily. [facility] vitamin w/FA tablet 04-25 00:00: 00 Yes [id number] 1{tbl} Take 1 tablet by mouth daily. [facility] Immunizations Ordered Immunization Name Filled Immunization Name Date Status Comments Source TDAP 2020-04-10 00:00:00 Completed [facility] TDAP 2020-04-10 00:00:00 Completed [facility] TDAP 2020-04-10 00:00:00 Completed [facility] TDAP 2018-02-15 00:00:00 Completed [facility] TDAP 2018-02-15 00:00:00 Completed [facility] TDAP 2018-02-15 00:00:00 Completed [facility] Influenza Virus Vaccine Quad IM 3+ YRS 2018-02-01 00:00:00 Completed [facility] Influenza Virus Vaccine Quad IM 3+ YRS 2018-02-01 00:00:00 Completed [facility] Influenza Virus Vaccine Quad IM 3+ YRS 2018-02-01 00:00:00 Completed [facility] HPV9 2017-03-18 00:00:00 Completed [facility] HPV9 2017-03-18 00:00:00 Completed [facility] HPV9 2017-03-18 00:00:00 Completed [facility] HPV9 2016-07-09 00:00:00 Completed [facility] HPV9 2016-07-09 00:00:00 Completed [facility] HPV9 2016-07-09 00:00:00 Completed [facility] HPV9 2016-04-02 00:00:00 Completed [facility] HPV9 2016-04-02 00:00:00 Completed [facility] HPV9 2016-04-02 00:00:00 Completed [facility] TDAP 2012-03-09 00:00:00 Completed [facility] TDAP 2012-03-09 00:00:00 Completed [facility] TDAP 2012-03-09 00:00:00 Completed [facility] TDAP Unknown Completed [facility] HPV9 Unknown Completed [facility] Influenza Virus Vaccine Quad IM 3+ YRS Unknown Completed [facility] TDAP Unknown Completed [facility] HPV9 Unknown Completed [facility] Influenza Virus Vaccine Quad IM 3+ YRS Unknown Completed [facility] TDAP Unknown Completed [facility] HPV9 Unknown Completed [facility] Influenza Virus Vaccine Quad IM 3+ YRS Unknown Completed [facility] TDAP Unknown Completed [facility] HPV9 Unknown Completed [facility] Influenza Virus Vaccine Quad IM 3+ YRS Unknown Completed [facility] Procedures Procedure Date / Time Performed Performing Clinician Source NOTICE OF RESEARCH PARTICIPATION 2022-09-26 05:01:00 Doctor Unassigned, [place] [facility] Encounters Start Date/Time End Date/Time Encounter Type Admission Type Attending [facility] Care Facility Care Department Encounter ID Source 2021-01-06 00:37:57 Outpatient [facility] [id number] [facility] 2021-01-04 18:28:04 Emergency [facility] [id number] [facility] 2023-01-02 00:00:00 2023-01-02 00:00:00 Outpatient GC_GCBZW_Ka diyala_S [facility] [id number] [facility] 2022-09-30 10:42:55 2022-09-30 10:42:55 Outpatient [facility] [id number] Eliud Trujillo 2022-09-26 00:00:00 2022-09-26 00:00:00 Orders Only Doctor Unassigned, [place] [facility] [id number] [id number] [facility] 2022-09-12 00:00:00 2022-09-12 00:00:00 Case Management Danielle Grijalva 1..840.114 [id number] [id number] [id number] [facility] 2022-09-10 15:30:17 2022-09-10 15:30:17 Outpatient [facility] [id number] Eliud Trujillo 2021-05-10 20:20:00 2021-05-10 20:35:12 Outpatient LULA CHAU [facility] [id number] [facility] 2021-03-15 15:30:00 2021-03-15 15:30:00 Outpatient LULA CHAU [facility] [id number] [facility] 2021-03-04 19:30:00 2021-03-04 19:45:00 Laboratory Only Only, Ang Db Test Odilia [facility] FRANCISCO J MARIE[facility] [id number] [id number] [facility] 2021-03-04 19:30:00 2021-03-04 19:30:00 [id number] 2020-05-28 12:45:00 2020-05-28 12:45:00 Outpatient R KYRIE GUTHRIE [facility] [id number] [facility] 2020-04-30 15:00:00 2020-04-30 15:00:00 Outpatient R VICENTA MAZARIEGOS [facility] [id number] [facility] 2020-04-26 13:00:00 2020-04-26 13:00:00 Outpatient R [facility] [id number] [facility] 2020-04-24 12:45:00 2020-04-24 12:45:00 Outpatient R [facility] [id number] [facility] 2020-04-23 13:00:00 2020-04-23 13:00:00 Outpatient P BENITO KIRAN [facility] [id number] [facility] 2020-04-21 18:21:00 2020-04-21 18:21:00 Outpatient P CHINTAN MERIDA [facility] [id number] [facility] 2020-04-19 13:00:00 2020-04-19 13:00:00 Outpatient R [facility] [id number] [facility] 2020-04-17 14:30:00 2020-04-17 14:30:00 Outpatient R [facility] [id number] [facility] 2020-04-12 13:00:00 2020-04-12 13:00:00 Outpatient R [facility] [id number] [facility] 2020-04-10 12:45:00 2020-04-10 12:45:00 Outpatient R [facility] [id number] [facility] 2020-04-05 13:00:00 2020-04-05 13:00:00 Outpatient R [facility] [id number] [facility] 2020-03-29 09:30:00 2020-03-29 09:30:00 Outpatient P [facility] [id number] [facility] 2020-03-27 13:45:00 2020-03-27 13:45:00 Outpatient P MAGNOBENITO [facility] [id number] [facility] 2020-03-05 14:30:00 2020-03-05 14:30:00 Outpatient R [facility] [id number] [facility] 2020-02-27 13:00:00 2020-02-27 13:00:00 Outpatient P [facility] [id number] [facility] 2020-02-16 13:00:00 2020-02-16 13:00:00 Outpatient R [facility] [id number] [facility] 2020-02-09 13:30:00 2020-02-09 13:30:00 Outpatient R [facility] [id number] [facility] 2020-01-30 13:00:00 2020-01-30 13:00:00 Outpatient P [facility] [id number] [facility] 2020-01-12 13:30:00 2020-01-12 13:30:00 Outpatient R [facility] [id number] [facility] 2020-01-05 13:00:00 2020-01-05 13:00:00 Outpatient P [facility] [id number] [facility] 2019-12-29 14:00:00 2019-12-29 14:00:00 Outpatient R [facility] [id number] [facility] 2019-12-28 00:00:00 2019-12-28 00:00:00 Outpatient R JESSE OLIVIA [facility] [id number] [facility] 2019-12-22 13:30:00 2019-12-22 13:30:00 Outpatient R [facility] [id number] [facility] 2019-12-14 00:00:00 2019-12-14 00:00:00 Outpatient R ROB DENNIS [facility] [id number] [facility] 2019-12-08 13:30:00 2019-12-08 13:30:00 Outpatient R [facility] [id number] [facility] 2019-11-24 13:30:00 2019-11-24 13:30:00 Outpatient R [facility] [id number] [facility] 2019-11-17 13:00:00 2019-11-17 13:00:00 Outpatient R [facility] [id number] [facility] 2019-11-09 00:00:00 2019-11-09 00:00:00 Patient Secure Msg Doctor Unassigned, [place] [facility] 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 [facility] [id number] [id number] [id number] [facility] 2019-11-07 13:45:2019-11-07 13:45:00 Outpatient P [facility] [id number] [facility] 2019-10-24 14:30:00 2019-10-24 14:30:00 Outpatient R [facility] [id number] [facility] 2019-10-17 13:00:00 2019-10-17 13:00:00 Outpatient R ZACHARY HERNANDEZ SHANNON [facility] [id number] [facility] 2019-10-11 08:15:00 2019-10-11 08:15:00 Outpatient R ROSA MARIA ROSANA [facility] [id number] [facility] 2019-10-10 00:00:00 2019-10-10 00:00:00 Patient Secure Msg Doctor Unassigned, [place] [facility] 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 [facility] [id number] [facility] 2019-10-05 15:00:00 2019-10-05 15:00:00 Outpatient R VICENTA MAZARIEGOS [facility] [id number] [facility] 2019-10-03 13:30:00 2019-10-03 13:30:00 Outpatient R TIERRA MORE [facility] [id number] [facility] 2019-09-22 14:00:00 2019-09-22 14:00:00 Outpatient R [facility] [id number] [facility] 2019-09-20 14:00:00 2019-09-20 14:00:00 Outpatient R KYRIE GUTHRIE [facility] [id number] [facility]
[2024-02-14] MEDS ORDERED: IBUPROFEN 400 MG TAB ONE (13:47)
[2024-02-14] MEDS ORDERED: HYDRALAZINE HCL 20 MG/ML VIAL ONE (14:24)
[2024-02-14 14:39] LABS: SARS-CoV-2 Antigen CONTROL BLUE LINE VIS/BG OK; SARS-CoV-2 Antigen Rapid Res Negative (Negative)
[2024-02-14 14:41] LABS: Absolute Eosinophils 0.2 K/uL (0-0.5); Absolute Lymphocytes (CBC) 0.9 K/uL (0.7-4.9); Absolute Monocytes 0.5 K/uL (0.1-1.3); Absolute Neutrophil 6.2 K/uL (1.8-8.0); Basophils % 0.5 % (0-1.3); Eosinophils % 2.4 % (0-4.4); Hematocrit 33.4 % (36.0-45.0); Hemoglobin 11.2 g/dL (12.0-15.0); MCH 29.2 pg (27.0-35.0); MCHC 33.4 g/dL (32.0-36.0); MCV 87.5 fL (80-100); MPV 7.7 fL (7.6-11.3); Monocytes % 6.4 % (3.3-12.3); Neutrophils % 78.7 % (41.7-73.7); Nucleated Red Blood Cells % 0.3 % (0-0); Platelets 342 thou/uL (152-406); RBC Red Blood Cell Count 3.82 M/uL (3.86-4.86); Red Cell Distribution Width 16.5 % (12.1-15.2)
[2024-02-14 14:59] LABS: Albumin/Globulin Ratio 0.8 (1.1-1.8); Anion Gap 9.6 mEq/L (5.0-15.0); Bilirubin Direct 0.2 mg/dL (0-0.2); Bilirubin Indirect, Calculated 0.4 mg/dL (0.2-0.8); Bilirubin Total 0.6 mg/dL (0.2-1.0); Globulin 3.8 g/dL (2.3-3.5); Potassium 3.6 mEq/L (3.5-5.1); Protein, Total 6.8 g/dL (6.4-8.2); Troponin High Sensitivity 48.3 pg/mL (<58.9)
[2024-02-14] MEDS ORDERED: LABETALOL 20 MG/4ML SYRINGE IV ONE (15:00)
--- NOTE | 2024-02-14 15:26 | RAD REPORT ---
EXAM: Chest Single View HISTORY: COUGH COMPARISON: 01/14/2013 FINDINGS: LUNGS/PLEURA: The lungs are clear. No pleural effusions or pneumothorax. No pulmonary edema. MEDIASTINUM: The mediastinal silhouette is within normal limits. CARDIAC: Cardiomegaly. UPPER ABDOMEN: No significant abnormality. BONES: No acute fracture. LINES/TUBES/OTHER: N/A IMPRESSION: No evidence of acute cardiopulmonary disease.
--- NOTE | 2024-02-14 15:49 | ER ---
Nurse's Notes [facility] Name: Sumaya Whitt Age: 28 yrs Sex: Female : 1995 Arrival Date: 02/14/2024 Time: 12:20 Bed 14 Private MD: Diagnosis: Acute renal failure, hypertensive urgency Presentation: 02/13 12:56 Chief complaint: Patient states: Flu like symptoms x1 week, neck pain that started this rs5 morning while getting up out of bed. Coronavirus screen: At this time, the client does not indicate any symptoms associated with coronavirus-19. Ebola Screen: No symptoms or risks identified at this time. Initial Sepsis Screen: Does the patient meet any 2 criteria? HR > 90 bpm. Yes Does the patient have a suspected source of infection? No. Patient's initial sepsis screen is negative. Risk Assessment: Do you want to hurt yourself or someone else? Patient reports no desire to harm self or others. Onset of symptoms was February 14, 2024. 12:56 Method Of Arrival: Ambulatory rs5 12:56 Acuity: CIARA 3 rs5 WEIGHER PACKING: 19:41 unknown bm8 Historical: - Allergies: 12:57 No Known Allergies; rs5 - PMHx: 12:57 GALLSTONES; Hypertensive disorder; rs5 - PSHx: 12:57 Cholecystectomy; c sections x2; rs5 - Immunization history:: Adult Immunizations up to date. - Infectious Disease History:: Denies. - Social history:: Smoking status: Patient denies any tobacco usage or history of. Screenin:10 [facility] ED Fall Risk Assessment (Adult) History of falling in the last 3 months, rs5 including since admission No falls in past 3 months (0 pts) Confusion or Disorientation No (0 pts) Intoxicated or Sedated No (0 pts) Impaired Gait No (0 pts) Mobility Assist Device Used No (0 pt) Altered Elimination No (0 pt) Score/Fall Risk Level 0 - 2 = Low Risk Oriented to surroundings, Maintained a safe environment. Abuse screen: Denies threats or abuse. Nutritional screening: No deficits noted. Tuberculosis screening: No symptoms or risk factors identified. Assessment: 13:09 Reassessment: pt arrived in room. rs5 13:10 General: Appears uncomfortable, Behavior is calm, cooperative. Pain: Complains of pain rs5 in neck Pain currently is 8 out of 10 on a pain scale. Quality of pain is described as aching, Is continuous. Neuro: Level of Consciousness is awake, alert, obeys commands, Oriented to person, place, time, situation. Cardiovascular: Patient's skin is warm and dry. Respiratory: Airway is patent Respiratory effort is even, unlabored, Respiratory pattern is regular, symmetrical. GI: Abdomen is round non-distended, Abd is soft and non tender X 4 quads. : No signs and/or symptoms were reported regarding the genitourinary system. EENT: No signs and/or symptoms were reported regarding the EENT system. Derm: Skin is intact, Skin is pink, warm \T\ dry. Musculoskeletal: Range of motion: intact in all extremities. 13:10 Reassessment: provider notified of latest bp. rs5 14:20 Reassessment: Patient and/or family updated on plan of care and expected duration. Pain rs5 level reassessed. Patient is alert, oriented x 3, equal unlabored respirations, skin warm/dry/pink. 15:31 Reassessment: Patient and/or family updated on plan of care and expected duration. Pain rs5 level reassessed. Patient is alert, oriented x 3, equal unlabored respirations, skin warm/dry/pink. 16:28 Reassessment: Patient and/or family updated on plan of care and expected duration. Pain rs5 level reassessed. Patient is alert, oriented x 3, equal unlabored respirations, skin warm/dry/pink. 19:37 Reassessment: Patient appears in no apparent distress at this time. Patient and/or bm8 family updated on plan of care and expected duration. Pain level reassessed. Patient is alert, oriented x 3, equal unlabored respirations, skin warm/dry/pink. General: Appears in no apparent distress. uncomfortable, Behavior is calm, cooperative, appropriate for age. Pain: Complains of pain in back of neck Pain currently is 8 out of 10 on a pain scale. Neuro: No deficits noted. Level of Consciousness is awake, alert, obeys commands, Oriented to person, place, time, situation, Appropriate for age. Cardiovascular: Denies chest pain. Respiratory: Airway is patent Respiratory effort is even, unlabored, Respiratory pattern is regular, symmetrical. : Reports pain in left flank(s). Musculoskeletal: Range of motion: intact in all extremities, Reports pain in back of neck. Vital Signs: 12:56 BP 209 / 151; Pulse 117; Resp 17; Temp 98.3(O); Pulse Ox 99% on R/A; rs5 13:30 BP 201 / 125; Pulse 117; Resp 16; Pulse Ox 99% on R/A; rs5 14:00 BP 205 / 122; Pulse 116; Resp 17; Pulse Ox 98% on R/A; rs5 14:30 BP 180 / 124; Pulse 122; Resp 17; Pulse Ox 98% on R/A; rs5 14:45 BP 185 / 115; Pulse 125; Resp 16; Pulse Ox 99% ; rs5 15:04 BP 173 / 113; Pulse 105; Resp 17; Pulse Ox 99% on R/A; rs5 15:10 BP 137 / 91; Pulse 101; Resp 17; Pulse Ox 99% on R/A; rs5 16:20 BP 145 / 107; Pulse 107; Resp 17; Pulse Ox 99% on R/A; rs5 19:37 BP 168 / 115; Pulse 109; Resp 20; Temp 98.3; Pulse Ox 99% ; Pain 8/10; bm8 19:37 Pain Scale: Adult bm8 Amanda Coma Score: 19:37 Eye Response: spontaneous(4). Motor Response: obeys commands(6). Verbal Response: bm8 oriented(5). Total: 15. ED Course: 12:23 Patient arrived in ED. ra3 12:57 Triage completed. rs5 13:02 Maryann Denny MD is Attending Physician. sp3 13:10 Patient has correct armband on for positive identification. Placed in gown. Bed in low rs5 position. Call light in reach. Side rails up X2. 13:10 No provider procedures requiring assistance completed. rs5 13:15 Inserted saline lock: 20 gauge in right antecubital area, using aseptic technique. rs5 Blood collected. Flushed with 10 mL NS. 13:24 Ramesh Gallegos, DIXON is Primary Nurse. rs5 15:04 CXR XRAY In Process Unspecified. EDMS 15:48 Jose Guaman MD is Hospitalizing Provider. sp3 16:30 Patient admitted, IV remains in place. rs5 19:00 Provided Education on: need for admission. Report received from dixon Chandler. bm8 20:42 Arm band placed on right wrist. bm8 Administered Medications: 14:20 Drug: hydrALAZINE IVP 20 mg IVP once Route: IVP; Site: right antecubital; rs5 19:28 Follow up: Response: No adverse reaction bm8 15:04 Drug: Labetalol IV 10 mg IV at calculated rate once Route: IV; Rate: calculated rate; rs5 Site: right antecubital; 19:28 Follow up: Response: No adverse reaction; IV Status: Completed infusion; IV Intake: [id number] Medication: 19:35 VIS not applicable for this client. rs5 Intake: 19:28 IV: 10ml; Total: 10ml. bm8 Outcome: 15:48 Decision to Hospitalize by Provider. sp3 16:30 Admitted to ER Hold. Please see [facility] for further documentation. rs5 16:30 Condition: stable 16:30 Instructed on the need for admit, Demonstrated understanding of instructions, 20:44 Patient left the ED. bm8 Signatures: Dispatcher [employer] EDMS Maryann Denny MD MD sp3 Ramesh Gallegos, RN RN rs5 Мария Aguayo ra3 Rl Diane RN RN bm8 Corrections: (The following items were deleted from the chart) 15:09 13:10 Reassessment: pt arrived in room. rs5 rs5
--- NOTE | 2024-02-14 15:49 | EDPHYS ---
Physician Documentation [facility] Name: Sumaya Whitt Age: 28 yrs Sex: Female : 1995 Arrival Date: 02/14/2024 Time: 12:20 Bed 14 Private MD: ED Physician Maryann Denny HPI: 02/13 13:56 This 28 yrs old Female presents to ER via Ambulatory with complaints of cough, sp3 congestion. 13:56 28-year-old female with history of hypertension noncompliant, presents with chief sp3 complaint cough, congestion, body aches, mild neck pain for the last 48 hours. She denies any fever. Productive cough is present. She denies chest pain, headache, abdominal pain, vomiting, diarrhea, rash, known sick contacts, travel history, prolonged immobilization, or any other signs or symptoms on ROS at this time.. 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 - Infectious Disease History:: Denies. - Social history:: Smoking status: Patient denies any tobacco usage or history of. ROS: 13:58 Constitutional: Negative for fever, chills, and weight loss, Eyes: Negative for injury, sp3 pain, redness, and discharge, Neck: Negative for injury, pain, and swelling, Cardiovascular: Negative for chest pain, palpitations, and edema, Abdomen/GI: Negative for abdominal pain, nausea, vomiting, diarrhea, and constipation, Back: Negative for injury and pain, MS/Extremity: Negative for injury and deformity, Neuro: Negative for headache, weakness, numbness, tingling, and seizure, 13:58 All other systems are negative, Exam: 13:59 Constitutional: This is a well developed, well nourished patient who is awake, alert, sp3 and in no acute distress. Head/Face: Normocephalic, atraumatic. Eyes: Pupils equal round and reactive to light, extra-ocular motions intact. Lids and lashes normal. Conjunctiva and sclera are non-icteric and not injected. Cornea within normal limits. Periorbital areas with no swelling, redness, or edema. ENT: Nares patent. No nasal discharge, no septal abnormalities noted. External auditory canals are clear. Oropharynx with no redness, swelling, or masses, exudates, or evidence of obstruction, uvula midline. Mucous membranes moist. Neck: Trachea midline, no thyromegaly or masses palpated, and no cervical lymphadenopathy. Supple, full range of motion without nuchal rigidity, or vertebral point tenderness. No Meningismus. Chest/axilla: Normal chest wall appearance and motion. Nontender with no deformity. No lesions are appreciated. Cardiovascular: Regular rate and rhythm with a normal S1 and S2. No gallops, murmurs, or rubs. Normal PMI, no JVD. No pulse deficits. Abdomen/GI: Soft, non-tender, with normal bowel sounds. No distension or tympany. No guarding or rebound. No evidence of tenderness throughout. Back: No spinal tenderness. No costovertebral tenderness. Full range of motion. Skin: Warm, dry with normal turgor. Normal color with no rashes, no lesions, and no evidence of cellulitis. MS/ Extremity: Pulses equal, no cyanosis. Neurovascular intact. Full, normal range of motion. Neuro: Awake and alert, GCS 15, oriented to person, place, time, and situation. Cranial nerves II-XII grossly intact. Motor strength 5/5 in all extremities. Sensory grossly intact. Cerebellar exam normal. Normal gait. Psych: Awake, alert, with orientation to person, place and time. Behavior, mood, and affect are within normal limits. 13:59 Respiratory: Mild cough noted., 14:29 ECG was reviewed by the Attending Physician. EKG demonstrates sinus tachycardia at 118 sp3 bpm with normal intervals except QTc of 513 high voltage, nonspecific diffuse ST/T changes without evidence of acute ischemia. Vital Signs: 12:56 BP 209 / 151; Pulse 117; Resp 17; Temp 98.3(O); Pulse Ox 99% on R/A; rs5 13:30 BP 201 / 125; Pulse 117; Resp 16; Pulse Ox 99% on R/A; rs5 14:00 BP 205 / 122; Pulse 116; Resp 17; Pulse Ox 98% on R/A; rs5 14:30 BP 180 / 124; Pulse 122; Resp 17; Pulse Ox 98% on R/A; rs5 14:45 BP 185 / 115; Pulse 125; Resp 16; Pulse Ox 99% ; rs5 15:04 BP 173 / 113; Pulse 105; Resp 17; Pulse Ox 99% on R/A; rs5 15:10 BP 137 / 91; Pulse 101; Resp 17; Pulse Ox 99% on R/A; rs5 16:20 BP 145 / 107; Pulse 107; Resp 17; Pulse Ox 99% on R/A; rs5 19:37 BP 168 / 115; Pulse 109; Resp 20; Temp 98.3; Pulse Ox 99% ; Pain 8/10; bm8 19:37 Pain Scale: Adult bm8 Amanda Coma Score: 19:37 Eye Response: spontaneous(4). Motor Response: obeys commands(6). Verbal Response: bm8 oriented(5). Total: 15. MDM: 13:02 Medical Screening Exam initiated sp3 13:59 Data reviewed: vital signs, nurses notes, lab test result(s), EKG, radiologic studies. sp3 ED course: 28-year-old female with hypertension and URI symptoms with mild tachycardia. Differential diagnosis includes viral illness, COVID-19, influenza, pneumonia, bronchitis. I am at highly suspicious of acute coronary syndrome, pulmonary embolism, CHF or any other critical process including sepsis or shock. Patient is resting in no acute distress.. 15:41 ED course: Patient with acute renal failure with creatinine at 3, blood pressure now sp3 controlled with labetalol, and possible overlying viral illness. Given creatinine elevation and uncontrolled blood pressure, patient warrants admission at this time.. 02/13 13:06 Order name: Flu; Complete Time: 14:55 sp3 02/13 13:06 Order name: SARS RAPID; Complete Time: 14:55 sp3 02/13 13:06 Order name: Strep sp3 02/13 14:07 Order name: Basic Metabolic Panel; Complete Time: 15:39 sp3 02/13 14:07 Order name: CBC with Diff; Complete Time: 14:55 sp3 02/13 14:07 Order name: LFT's; Complete Time: 15:39 sp3 02/13 14:07 Order name: Troponin HS; Complete Time: 15:39 sp3 02/13 14:43 Order name: Throat Culture EDMS 02/13 14:57 Order name: TSH sp3 02/13 14:57 Order name: T4,Total sp3 02/13 14:57 Order name: T4 Free sp3 02/13 16:34 Order name: UAM la1 02/13 17:29 Order name: Test, Urine rs5 02/13 17:51 Order name: Test, Urine EDMS 02/13 13:42 Order name: CXR XRAY; Complete Time: 15:39 sp3 02/13 16:33 Order name: CT Abd/Pelvis - Without Contrast la1 02/13 16:40 Order name: Echo with Doppler EDMS 02/13 16:40 Order name: Renal Ultrasound-Complete EDMS 02/13 16:40 Order name: Renal Ultrasound-Limited EDMS 02/13 18:14 Order name: CT EDMS 02/13 18:17 Order name: CT EDMS 02/13 20:26 Order name: US EDMS 02/13 13:42 Order name: EKG; Complete Time: 13:43 sp3 02/13 13:42 Order name: EKG - Nurse/Tech; Complete Time: 16:09 sp3 02/13 14:07 Order name: IV Saline Lock; Complete Time: 14:43 sp3 02/13 14:07 Order name: Labs collected and sent; Complete Time: 14:43 sp3 Administered Medications: 14:20 Drug: hydrALAZINE IVP 20 mg IVP once Route: IVP; Site: right antecubital; rs5 19:28 Follow up: Response: No adverse reaction bm8 15:04 Drug: Labetalol IV 10 mg IV at calculated rate once Route: IV; Rate: calculated rate; rs5 Site: right antecubital; 19:28 Follow up: Response: No adverse reaction; IV Status: Completed infusion; IV Intake: [id number] Disposition Summary: 02/14/24 15:48 Hospitalization Ordered Notes: Hospitalization Status: Inpatient Admission sp3 Provider: Jose Guaman sp3 Location: Telemetry/[facility] (Inpatient) sp3 Condition: Stable sp3 Problem: an acute exacerbation sp3 Symptoms: have worsened sp3 Bed/Room Type: Standard sp3 Room Assignment: 417(02/14/24 19:55) sp Diagnosis - Acute renal failure, hypertensive urgency sp3 Forms: - Medication Reconciliation Form sp3 - SBAR form sp3 - Leadership Thank You Letter sp3 Critical care time excluding procedures: 15:47 Critical care time: Bedside Care: 15 minutes, Consultation: 5 minutes, Family sp3 Intervention: 10 minutes. Total time: 30 minutes Signatures: Dispatcher [employer] EDMS Leonila Farias Setul, MD MD sp3 Ramesh Gallegos, RN RN rs5 Rl Diane RN bm8 Corrections: (The following items were deleted from the chart) 13:06 13:06 Influenza Screen (A \T\ B)+BA.LAB.BRZ ordered. EDMS EDMS 13:06 13:06 SARS-COV-2 Antigen Rapid+I.LAB.BRZ ordered. EDMS EDMS 13:06 13:06 Group A Streptococcus Rapid Sc+BA.LAB.BRZ ordered. EDMS EDMS 13:43 13:43 Chest Single View+RAD.RAD.BRZ ordered. EDMS EDMS 14:58 14:58 THYROID STIMULAT HORMONE+C.LAB.BRZ ordered. EDMS EDMS 14:58 14:58 T4,TOTAL+C.LAB.BRZ ordered. EDMS EDMS 14:58 14:58 T4 FREE+C.LAB.BRZ ordered. EDMS EDMS 15:46 14:57 Chest For PE Angio+CT.RAD.BRZ ordered. EDMS EDMS 19:30 15:48 sp3 sp 19:55 19:30 430 sp sp
[2024-02-14 16:36] LABS: T4,Total 7.7 ug/dL (4.8-13.9); Thyroid Stimulating Hormone 1.68 uIU/mL (0.358-3.740)
--- NOTE | 2024-02-14 16:58 | P.HP ---
Certification for Inpatient Patient admitted to: Inpatient With expected LOS: >2 Midnights Patient will require the following post-hospital care: None Practitioner: I am a practitioner with admitting privileges, knowledge of patient current condition, hospital course, and medical plan of care. Services: Services provided to patient in accordance with Admission requirements found in Title 42 Section 412.3 of the Code of Federal Regulations Patient History Date of Service: 02/14/24 Reason for admission: GAVIN, hypertensive urgency History of Present Illness: 28-year-old female with history of CKD, hypertension after her second when she developed severe preeclampsia presented to the emergency department chief complaint of abdominal pain. She reports after her second in 2018 when she had severe preeclampsia she began suffering from elevated blood pressures, in July 2022 she was seen in the [facility] in [place] and had a prolonged hospitalization for GAVIN/CKD and elevated blood pressures. She reports that she had a renal biopsy, echocardiogram, was seen by kidney doctors and heart doctors and subsequently discharged to follow-up outpatient but is unable to follow-up but she never got a referral. She also reports that she stopped taking her blood pressure medications about 2 months ago as she did not like the way they made her feel, she has not been able to follow-up with a nurse advisor since her hospitalization in 2022 in [place]. She is unsure what her normal renal function is, does not check her blood pressure regularly. Patient was evaluated in the ER labs are significant for creatinine of 3.07, GFR of 21 hemoglobin 11.2 hematocrit 33.4 UA is pending chest x-ray negative for acute findings. ED provider was admit patient for suspected GAVIN, hypertensive urgency. Patient blood pressure was 209/151 he was given IV hydralazine and labetalol, blood pressure significant proved at around 160/115. Patient denies any chest pain, headache or other signs of hypertensive emergency. Allergies NKDA Allergy (Uncoded 02/20/15 14:31) Unknown Home Medications: Cefdinir [Cefdinir*] 300 mg PO BID #14 cap 04/28/18 - Past Medical/Surgical History Diabetic: No -: obesity -: Hypertension -: CKDunknown baseline -: c section x 2 -: Cholecystectomy Psychosocial/ Personal History: Lives at home with family - Family History Mother -: Diabetes - Social History Smoking Status: Never smoker Alcohol use: Yes CD- Drugs: No Caffeine use: Yes Place of Residence: Home Review of Systems 10-point ROS is otherwise unremarkable Gastrointestinal: Nausea, Abdominal Pain Physical Examination - Physical Exam General: Alert, In no apparent distress, Oriented x3, Obese HEENT: Atraumatic, PERRLA, Mucous membr. moist/pink Neck: Supple, 2+ carotid pulse no bruit, No LAD Respiratory: Clear to auscultation bilaterally, Normal air movement Cardiovascular: Regular rate/rhythm, Normal S1 S2 Gastrointestinal: Normal bowel sounds, No tenderness Musculoskeletal: No tenderness Integumentary: No rashes Neurological: Normal speech, Normal strength at 5/5 x4 extr, Normal tone - Studies Laboratory Data (last 24 hrs) 02/14/24 02/14/24 14:30 14:30 WBC 7.90 Hgb 11.2 L Hct 33.4 L Plt Count 342 Sodium 140 Potassium 3.6 BUN 29 H Creatinine 3.07 H Glucose 128 H Total Bilirubin 0.6 AST 63 H ALT 109 H Alkaline Phosphatase 111 Microbiology Data (last 24 hrs): 02/14/24 13:55 Throat Group A Streptococcus Rapid Screen - Final 02/14/24 13:55 Nasopharnyx Influenza Type A Antigen Screen - Final 02/14/24 13:55 Nasopharnyx Influenza Type B Antigen Screen - Final Assessment and Plan - Plan Assessment: GAVIN on CKD-unknown baseline Hypertensive urgency Plan: GAVIN on CKD-unknown baseline Hypertensive urgency Patient has been off of her medications for 2 months as she did not like the way they made her feel At home she is supposed to be on carvedilol, hydralazine and isosorbide per patient Reports hospitalization in July 2022 at [facility] at that time underwent renal biopsy and other testing had prolonged hospitalization 2 to 3 weeks Will attempt to retrieve records, patient instructed to try to activate patient portal Has not followed up with nephrology since then as she has not been able to get referral Will consult cardiology, nephrology Obtain renal ultrasound, renal artery ultrasound, echocardiogram Start back on carvedilol, hydralazine Initial blood pressure 209/150 Improved at this time, will give dose of carvedilol, hydralazine tonight Ordered and pending, CT abdomen pelvis noncontrast ordered and pending DVT PPX:heparin subq Code status:Full Discharge Plan: Home Plan to discharge in: 48 Hours - Advance Directives Does patient have a Living Will: No Does patient have a Durable POA for Healthcare: No - Code Status/Comfort Care Code Status Assessed: Yes (Full code) Critical Care: No Time Spent Managing Pts Care (In Minutes): 65
[2024-02-14 17:55] LABS: Specific Gravity 1.011 (1.005-1.030)
[2024-02-14 17:56] LABS: Specific Gravity 1.011 (1.005-1.030); Sqamous Epithelial <5 /HPF (None Seen); Urine Bacteria None Seen /HPF (<20); Urine Bilirubin NEGATIVE (Negative); Urine Blood Negative (Negative); Urine Clarity Clear (Clear); Urine Color Light-Yellow (Yellow); Urine Culture Reflex Order NOT NEEDED; Urine Glucose TRACE (Negative); Urine Ketones NEGATIVE (Negative); Urine Micro Reflex YN NO BILL MICROSCOPIC; Urine Mucus Slight /HPF (None Seen); Urine Nitrite NEGATIVE (Negative); Urine Protein 3+ (Negative); Urine RBC <5 /HPF (None Seen); Urine Urobilinogen Normal (Normal); Urine WBC <5 /HPF (<5)
--- NOTE | 2024-02-14 18:14 | RAD REPORT ---
EXAMINATION: CT CERVICAL SPINE WITHOUT CONTRAST CLINICAL INDICATION: Female, 28 years old. PAIN TECHNIQUE: Axial CT images through the cervical spine were obtained without intravenous contrast. Sag ittal and coronal reformatted images were created from the data set. One or more of the following dose reduction techniques were used: Automated exposure control, adjustment of the mA and/or kV accor ding to patient size, and/or iterative reconstruction. Unless otherwise specified, incidental findings do not require dedicated imaging follow-up. [id number]. COMPARISON: No prior exam. FINDINGS: ALIGNMENT: The cervical spine has normal alignment without scoliosis or spondylolisthesis. BONE: Vertebral body heights are maintained. No aggressive osseous lesions. DISCS: Disc heights are maintained. LEVELS: No significant spinal canal or neural foraminal stenosis. No visualized abnormality within th e spinal canal. SOFT TISSUE: No significant abnormalities in the soft tissue of the neck. The visualized lung apices are clear. IMPRESSION: No acute cervical spine abnormalities.
--- NOTE | 2024-02-14 18:16 | RAD REPORT ---
EXAMINATION: CT ABDOMEN AND PELVIS WITHOUT CONTRAST CLINICAL INDICATION: Female, 28 years old.GAVIN, abd pain TECHNIQUE: CT abdomen and pelvis was performed, without IV contrast, as per department protocol. Axia l, sagittal and coronal reconstructions were obtained. One or more of the following dose reduction techniques were used: Automated exposure control, adjustment of the mA and/or kV according to the pat ient size, and/or iterative reconstruction. Unless otherwise specified, incidental findings do not require dedicated imaging follow-up. [id number]. IV CONTRAST: Not administered. COMPARISON: 04/28/18 FINDINGS: The lack of intravenous contrast limits the sensitivity of this exam for evaluation of solid visceral organs, vascular structures, and retroperitoneum. LOWER CHEST: Mild cardiomegaly. LIVER: Normal in size and contour. No focal lesion. GALLBLADDER/BILE DUCTS: No biliary ductal dilatation.?Cholecystectomy. PANCREAS: No mass, ductal dilation, or litzy-pancreatic fluid. SPLEEN: Normal size. No focal lesion. ADRENALS: Normal; no mass. KIDNEYS AND URETERS: Normal size and contour. No hydronephrosis. URINARY BLADDER: Normal contour. GASTROINTESTINAL TRACT: Stomach is non-dilated. Small bowel has normal course and caliber. No colonic wall thickening or pericolonic inflammatory changes. PERITONEUM: No free fluid. ABDOMINAL AORTA AND OTHER VESSELS: Normal caliber aorta and IVC. REPRODUCTIVE ORGANS: No pathologic process. MUSCULOSKELETAL: No acute or suspicious osseous abnormality. ADDITIONAL FINDINGS: None. IMPRESSION: No acute or significant abnormalities in the abdomen or pelvis, with evaluation limited by lack of IV contrast. Normal appendix..
--- NOTE | 2024-02-14 20:26 | RAD REPORT ---
EXAMINATION: US RENAL DUPLEX CLINICAL INDICATION: Female, 28 years old. palma, htn. TECHNIQUE: Real-time grayscale, color flow and spectral Doppler sonographic images were obtained of t he bilateral renal arteries using a linear transducer. COMPARISON: Same day CT FINDINGS: AORTA: 112 cm/s RIGHT: Proximal renal artery: 41 cm/s Mid renal artery: 35 cm/s Distal renal artery: 27 cm/s Arcuate artery resistive index: 0.6 Renal/aortic ratio: 0.4 LEFT: Proximal renal artery: 62 cm/s Mid renal artery: 47 cm/s Distal renal artery: 56 cm/s Arcuate artery resistive index: 0.5 Renal/aortic ratio: 0.6 No hydronephrosis is present. The bladder is unremarkable. IMPRESSION: No evidence of renal artery stenosis bilaterally.
[2024-02-14] MEDS: HYDRALAZINE HCL 25 MG TABLET PO SCH (21:30)
[2024-02-14 21:46] VITALS: BMI 46.6
[2024-02-14] MEDS: ONDANSETRON 4 MG/2 ML VIAL IV PRN (23:39)
[2024-02-14] MEDS: HYDROCODONE/APAP 7.5/325 MG TAB PO PRN (23:41)
[2024-02-15] MEDS: carvediloL 25 MG TAB ONE (04:06)
[2024-02-15] MEDS: carvediloL 25 MG TAB PO SCH (04:12)
[2024-02-15] MEDS ORDERED: LABETALOL 20 MG/4ML SYRINGE IV PRN (06:34)
[2024-02-15 07:45] LABS: Absolute Basophils 0.1 K/uL (0-0.5); Absolute Eosinophils 0.2 K/uL (0-0.5); Absolute Lymphocytes (CBC) 1.1 K/uL (0.7-4.9); Absolute Monocytes 0.5 K/uL (0.1-1.3); Absolute Neutrophil 5.2 K/uL (1.8-8.0); Basophils % 0.8 % (0-1.3); Hematocrit 32.4 % (36.0-45.0); Hemoglobin 10.3 g/dL (12.0-15.0); Lymphocytes % 15.8 % (15.3-44.8); MCH 28.3 pg (27.0-35.0); MCHC 31.8 g/dL (32.0-36.0); Monocytes % 6.6 % (3.3-12.3); Neutrophils % 73.8 % (41.7-73.7); Nucleated Red Blood Cells % 0.3 % (0-0); Platelets 291 thou/uL (152-406); RBC Red Blood Cell Count 3.64 M/uL (3.86-4.86); Red Cell Distribution Width 16.7 % (12.1-15.2)
[2024-02-15 08:00] LABS: Anion Gap 10.1 mEq/L (5.0-15.0); Magnesium 2.3 mg/dL (1.6-2.4); Potassium 4.1 mEq/L (3.5-5.1); Uric Acid 9.5 mg/dL (2.6-6.0)
[2024-02-15] MEDS: ISOSORBIDE DINIT 20 MG TAB PO SCH (09:13)
[2024-02-15] MEDS: HEPARIN 5000 UNIT/ML 1 ML VIAL SQ SCH (09:13)
--- NOTE | 2024-02-15 10:49 | P.PN ---
Date of Service: 02/15/24 Subjective: No acute events overnight Feeling a little better today ROS: 10 point ROS as noted above, otherwise negative Physical exam GEN: Alert, oriented, NAD HEENT: Normal conjunctiva, sclera anicteric CV: Regular rate and rhythm, no edema Pulm: Nonlabored respirations on room air ABD: Soft, nontender, nondistended MSK: No joint tenderness Integumentary: No rashes Neuro: Normal speech, normal affect Vitals reviewed Plan: GAVIN on CKD-unknown baseline Hypertensive urgency Patient has been off of her medications for 2 months as she did not like the way they made her feel At home she is supposed to be on carvedilol, hydralazine and isosorbide per patient Reports hospitalization in July 2022 at [facility] at that time underwent renal biopsy and other testing had prolonged hospitalization 2 to 3 weeks Will attempt to retrieve records, patient instructed to try to activate patient portal Has not followed up with nephrology since then as she has not been able to get referral Will consult cardiology, nephrology Obtain renal ultrasound, renal artery ultrasound, echocardiogram Renal artery ultrasound negative for renal artery stenosis, CT abdomen pelvis negative for acute findings, no hydronephrosis CT head/C-spine negative for acute findings Start back on carvedilol, hydralazine, isosorbide Initial blood pressure 209/150 Blood pressure still elevated but improving DVT PPX:heparin subq Code status:Full Discharge Plan: Home Plan to discharge in: 48 Hours Time Spent Managing Pts Care (In Minutes): 35
--- NOTE | 2024-02-15 17:05 | P.CNS ---
Date of Consult: 02/15/24 Chief Complaint: GAVIN, hypertensive urgency History of Present Illness: Patient with PMH of HTN, related to , admitted with HTN, denies having chest pain, no SOB, no palpitations, no syncope. Allergies NKDA Allergy (Uncoded 02/20/15 14:31) Unknown Home medications list reviewed: Yes Home Medications: Carvedilol [Coreg] 25 tab PO BID 02/14/24 Hydralazine [Apresoline] 50 mg PO TID 02/14/24 Isosorbide Dinitrate 20 mg PO BID 02/14/24 - Past Medical/Surgical History Diabetic: No -: obesity -: Hypertension -: CKDunknown baseline -: c section x 2 -: Cholecystectomy Psychosocial/ Personal History: Lives at home with family - Family History Mother Medical History: Diabetes - Social History Alcohol use: Yes CD- Drugs: Yes Caffeine use: No Place of Residence: Home Review of Systems 10-point ROS is otherwise unremarkable Physical Examination Temp Pulse Resp BP Pulse Ox 98.0 F 79 18 116/74 98 02/15/24 16:00 02/15/24 16:52 02/15/24 16:00 02/15/24 16:52 02/15/24 16:00 General: Alert, In no apparent distress HEENT: Atraumatic, PERRLA, Mucous membr. moist/pink, EOMI, Sclerae nonicteric Neck: Supple, 2+ carotid pulse no bruit, No LAD, Without JVD or thyroid abnormality Respiratory: Clear to auscultation bilaterally, Normal air movement Cardiovascular: Regular rate/rhythm, Normal S1 S2 Gastrointestinal: Normal bowel sounds, No tenderness Musculoskeletal: No tenderness Integumentary: No rashes Neurological: Normal gait, Normal speech, Normal tone, Normal affect Lymphatics: No axilla or inguinal lymphadenopathy - Problems (1) HTN (hypertension) Current Visit: Yes Status: Acute Plan: continue coreg 25 mg po BID Continue Hydralazine 50 TID Continue Isordil
--- NOTE | 2024-02-15 21:03 | P.CNS ---
Date of Consult: 02/15/24 Reason for Consult: GAVIN/ CKD Requesting Physician: Jose Guaman Chief Complaint: GAVIN, hypertensive urgency History of Present Illness: 28-year-old female with history of CKD, hypertension after her second when she developed severe preeclampsia presented to the emergency department chief complaint of abdominal pain. She reports after her second in 2019 when she had severe preeclampsia she began suffering from elevated blood pressures, in July 2022 she was seen in the [facility] in [place] and had a prolonged hospitalization for GAVIN/CKD and elevated blood pressures. She reports that she had a renal biopsy, echocardiogram, was seen by kidney doctors and heart doctors and subsequently discharged to follow-up outpatient but is unable to follow-up but she never got a referral. She also reports that she stopped taking her blood pressure medications about 2 months ago as she did not like the way they made her feel, she has not been able to follow-up with a multifocal button inspector since her hospitalization in 2022 in [place]. She is unsure what her normal renal function is, does not check her blood pressure regularly. Patient was evaluated in the ER labs are significant for creatinine of 3.07, GFR of 21 hemoglobin 11.2 hematocrit 33.4 UA is pending chest x-ray negative for acute findings. ED provider was admit patient for suspected GAVIN, hypertensive urgency. Patient blood pressure was 209/151 he was given IV hydralazine and labetalol, blood pressure significant proved at around 160/115. Patient denies any chest pain, headache or other signs of hypertensive emergency. [id number] 13:56 This 28 yrs old Female presents to ER via Ambulatory with complaints of cough, sp3 congestion. 13:56 28-year-old female with history of hypertension noncompliant, presents with chief sp3 complaint cough, congestion, body aches, mild neck pain for the last 48 hours. She denies any fever. Productive cough is present. She denies chest pain, headache, abdominal pain, vomiting, diarrhea, rash, known sick contacts, travel history, prolonged immobilization, or any other signs or symptoms on ROS at this time. Diagnosed with HTN in 2018. Admitted to [facility] in [facility] July 2022 and found to have CKD. A renal biopsy was performed in 2017 during the admission. Denies NSAIDs. Denies any difficulty with urination. Reports that she has not been taking her medications due to dizziness. Allergies NKDA Allergy (Uncoded 02/20/15 14:31) Unknown Home medications list reviewed: Yes Home Medications: Carvedilol [Coreg] 25 tab PO BID 02/14/24 Hydralazine [Apresoline] 50 mg PO TID 02/14/24 Isosorbide Dinitrate 20 mg PO BID 02/14/24 - Past Medical/Surgical History Diabetic: No -: Obesity -: HTN -: CKD with Proteinuria -: c section x 2 -: Cholecystectomy Psychosocial/ Personal History: Lives at home with family - Family History Mother Medical History: Diabetes - Social History Alcohol use: Yes CD- Drugs: Yes Caffeine use: No Place of Residence: Home Review of Systems 10-point ROS is otherwise unremarkable Cardiovascular: Edema Gastrointestinal: Abdominal Pain Physical Examination Temp Pulse Resp BP Pulse Ox 98.0 F 79 18 116/74 98 02/15/24 16:00 02/15/24 16:52 02/15/24 16:00 02/15/24 16:52 02/15/24 16:00 General: In no apparent distress, Oriented x3, Cooperative HEENT: Atraumatic Neck: Supple Respiratory: Clear to auscultation bilaterally Cardiovascular: Regular rate/rhythm, Edema Gastrointestinal: Soft and benign, Non-distended Musculoskeletal: No clubbing, No contractures Integumentary: No rashes, No cyanosis Neurological: Normal speech Blood work reviewed in the chart. Imagings Data: EXAMINATION: CT ABDOMEN AND PELVIS WITHOUT CONTRAST CLINICAL INDICATION: Female, 28 years old.GAVIN, abd pain TECHNIQUE: CT abdomen and pelvis was performed, without IV contrast, as per department protocol. Axial, sagittal and coronal reconstructions were obtained. One or more of the following dose reduction techniques were used: Automated exposure control, adjustment of the mA and/or kV according to the patient size, and/or iterative reconstruction. Unless oth erwise specified, incidental findings do not require dedicated imaging follow-up. [id number]. IV CONTRAST: Not administered. COMPARISON: 04/28/18 FINDINGS: The lack of intravenous contrast limits the sensitivity of this exam for evaluation of solid visceral organs, vascular structures, and retroperitoneum. LOWER CHEST: Mild cardiomegaly. LIVER: Normal in size and contour. No focal lesion. GALLBLADDER/BILE DUCTS: No biliary ductal dilatation.?Cholecystectomy. PANCREAS: No mass, ductal dilation, or litzy-pancreatic fluid. SPLEEN: Normal size. No focal lesion. ADRENALS: Normal; no mass. KIDNEYS AND URETERS: Normal size and contour. No hydronephrosis. URINARY BLADDER: Normal contour. GASTROINTESTINAL TRACT: Stomach is non-dilated. Small bowel has normal course and caliber. No colonic wall thickening or pericolonic inflammatory changes. PERITONEUM: No free fluid. ABDOMINAL AORTA AND OTHER VESSELS: Normal caliber aorta and IVC. REPRODUCTIVE ORGANS: No pathologic process. MUSCULOSKELETAL: No acute or suspicious osseous abnormality. ADDITIONAL FINDINGS: None. IMPRESSION: No acute or significant abnormalities in the abdomen or pelvis, with evaluation limited by lack of IV contrast. Normal appendix. EXAM: Chest Single View HISTORY: COUGH COMPARISON: 01/14/2013 FINDINGS: LUNGS/PLEURA: The lungs are clear. No pleural effusions or pneumothorax. No pulmonary edema. MEDIASTINUM: The mediastinal silhouette is within normal limits. CARDIAC: Cardiomegaly. UPPER ABDOMEN: No significant abnormality. BONES: No acute fracture. LINES/TUBES/OTHER: N/A IMPRESSION: No evidence of acute cardiopulmonary disease. EXAMINATION: CT CERVICAL SPINE WITHOUT CONTRAST CLINICAL INDICATION: Female, 28 years old. PAIN TECHNIQUE: Axial CT images through the cervical spine were obtained without intravenous contrast. Sagittal and coronal reformatted images were created from the data set. One or more of the following dose reduction techniques were used: Automated exposure control, adjustment of the mA and/or kV according to patient size, and/or iterative reconstruction. Unless otherwise specified, incidental findings do not require dedicated imaging follow-up. [id number]. COMPARISON: No prior exam. FINDINGS: ALIGNMENT: The cervical spine has normal alignment without scoliosis or spondylolisthesis. BONE: Vertebral body heights are maintained. No aggressive osseous lesions. DISCS: Disc heights are maintained. LEVELS: No significant spinal canal or neural foraminal stenosis. No visualized abnormality within the spinal canal. SOFT TISSUE: No significant abnormalities in the soft tissue of the neck. The visualized lung apices are clear. IMPRESSION: No acute cervical spine abnormalities. EXAMINATION: US RENAL DUPLEX CLINICAL INDICATION: Female, 28 years old. gavin, htn. TECHNIQUE: Real-time grayscale, color flow and spectral Doppler sonographic images were obtained of the bilateral renal arteries using a linear transducer. COMPARISON: Same day CT FINDINGS: AORTA: 112 cm/s RIGHT: Proximal renal artery: 41 cm/s Mid renal artery: 35 cm/s Distal renal artery: 27 cm/s Arcuate artery resistive index: 0.6 Renal/aortic ratio: 0.4 LEFT: Proximal renal artery: 62 cm/s Mid renal artery: 47 cm/s Distal renal artery: 56 cm/s Arcuate artery resistive index: 0.5 Renal/aortic ratio: 0.6 No hydronephrosis is present. The bladder is unremarkable. IMPRESSION: No evidence of renal artery stenosis bilaterally. Conclusions/Impression: Stage II GAVIN in the setting of HTN CKD III with Proteinuria -No NSAIDs -Doppler Renal US reviewed; No LESLIE -Request records from [facility] in [place] Hyperuricemia Hypertensive Urgency HTN with CKD -Restart home medications Cardiomegaly Peripheral Edema -Low sodium diet -Consider diuresis Hypoalbuminemia -Maintain nutrition Anemia in chronic illness -Monitor H&H -Retacrit prn Case reviewed with Dr. Guaman Thank you kindly for the consultation
[2024-02-16 07:06] LABS: Absolute Eosinophils 0.3 K/uL (0-0.5); Absolute Lymphocytes (CBC) 1.3 K/uL (0.7-4.9); Absolute Monocytes 0.5 K/uL (0.1-1.3); Absolute Neutrophil 5.5 K/uL (1.8-8.0); Basophils % 0.3 % (0-1.3); Eosinophils % 3.6 % (0-4.4); Hematocrit 33.3 % (36.0-45.0); Hemoglobin 10.8 g/dL (12.0-15.0); MCHC 32.6 g/dL (32.0-36.0); MCV 89.1 fL (80-100); MPV 7.6 fL (7.6-11.3); Monocytes % 6.8 % (3.3-12.3); Neutrophils % 72.3 % (41.7-73.7); Nucleated Red Blood Cells % 0.1 % (0-0); Platelets 378 thou/uL (152-406); RBC Red Blood Cell Count 3.74 M/uL (3.86-4.86); Red Cell Distribution Width 16.7 % (12.1-15.2)
[2024-02-16 07:35] LABS: ALT/SGPT 76 U/L (13-56); AST/SGOT 27 U/L (15-37); Albumin 2.7 g/dL (3.4-5.0); Albumin/Globulin Ratio 0.8 (1.1-1.8); Alkaline Phosphatase 92 U/L (45-117); Anion Gap 8.6 mEq/L (5.0-15.0); BUN Blood Urea Nitrogen 25 mg/dL (7-18); Bicarbonate 24 mEq/L (21-32); Bilirubin Total 0.3 mg/dL (0.2-1.0); Creatine Phosphokinase 36 U/L (26-192); Globulin 3.6 g/dL (2.3-3.5); Glomerular Filtration Rate 20 ml/min (=/>90); Glucose Level 103 mg/dL (74-106); Magnesium 2.3 mg/dL (1.6-2.4); NT PRO-BNP 5532 pg/mL (<125); Phosphorus 3.3 mg/dL (2.5-4.9); Potassium 3.6 mEq/L (3.5-5.1); Protein, Total 6.3 g/dL (6.4-8.2); Sodium Level 139 mEq/L (136-145); Uric Acid 9.7 mg/dL (2.6-6.0)
[2024-02-16 07:38] LABS: Bilirubin Direct < 0.2 mg/dL (0-0.2); Bilirubin Indirect, Calculated 0.1 mg/dL (0.2-0.8)
--- NOTE | 2024-02-16 08:59 | ECHO ---
HEIGHT: 5 ft 3.5 in WEIGHT: 267 lb 9.6 oz DATE OF STUDY: 02/15/[address]: Santo Baxter NP 2-DIMENSIONAL: YES M.MODE: YES DOPPLER: YES COLOR FLOW: YES TDS: NO PORTABLE: YES DEFINITY: NO BUBBLE STUDY: NO DIAGNOSIS: MALIGNANT HYPERTENSION, HYPERTENSION URGENCY CARDIAC HISTORY: CATHERIZATION: SURGERY: PROSTHETIC VALVE: PACEMAKER: MEASUREMENTS (cm) DIASTOLIC (NORMALS) SYSTOLIC (NORMALS) IVSd 1.2 (0.6-1.2) LA Diam 4.7 (1.9-4.0) LVEF 60% LVIDd 4.2 (3.5-5.7) LVIDs 3.0 (2.0-3.5) %FS 29% LVPWd 1.3 (0.6-1.2) Ao Diam 2.8 (2.0-3.7) 2 DIMENSIONAL ASSESSMENT: RIGHT ATRIUM: NORMAL LEFT ATRIUM: NORMAL RIGHT VENTRICLE: NORMAL LEFT VENTRICLE: NORMAL TRICUSPID VALVE: MILD TRICUSPID REGURGITATION MITRAL VALVE: NORMAL PULMONIC VALVE: NORMAL AORTIC VALVE: NORMAL PERICARDIAL EFFUSION: NONE AORTIC ROOT: NORMAL LEFT VENTRICULAR WALL MOTION: NORMAL. DOPPLER/COLOR FLOW: NORMAL. COMMENTS: 1. NORMAL LEFT VENTRICUALR SYSTOLIC FUNCTION. LEFT VENTRICULAR EJECTION FRACTION 60%. NORMAL WALL MOTION. 2. NORMAL DIASTOLIC FUNCTION. TECHNOLOGIST: MATHEW CHRISTY
[2024-02-16 10:09] LABS: Specific Gravity 1.013 (1.005-1.030); Sqamous Epithelial <5 /HPF (None Seen); Urine Bacteria <20 /HPF (<20); Urine Bilirubin NEGATIVE (Negative); Urine Blood Negative (Negative); Urine Clarity Turbid (Clear); Urine Color Light-Yellow (Yellow); Urine Crystals Unidentified Few /HPF (None Seen); Urine Culture Reflex Order NOT NEEDED; Urine Glucose NEGATIVE (Negative); Urine Ketones NEGATIVE (Negative); Urine Micro Reflex YN NO BILL MICROSCOPIC; Urine Mucus Slight /HPF (None Seen); Urine Nitrite NEGATIVE (Negative); Urine Protein 2+ (Negative); Urine RBC <5 /HPF (None Seen); Urine Urobilinogen Normal (Normal); Urine WBC <5 /HPF (<5); Urine WBC Clump Rare /HPF (None Seen)
[2024-02-16 11:09] LABS: MA/CREAT RATIO 911.5 (< 30.0); UR PROTEIN 155.1 mg/dL (<11.9); Urine Protein/Creatinine Ratio 1.37 ratio (<0.15)
[2024-02-16] MEDS: FUROSEMIDE 40 MG/4 ML VIAL IV SCH (13:04)
[2024-02-16] MEDS: ACETAMINOPHEN 325 MG TABLET PO PRN (16:20)
--- NOTE | 2024-02-16 20:37 | P.PN ---
Date of Service: 02/16/24 Subjective: Sitting up on edge of bed eating breakfast Creatinine at 3.11, with edema to BLE Will diurese overnight and re-evaluate kidney function. ROS: 10 point ROS as noted above, otherwise negative Physical exam GEN: AAO x3, NAD HEENT: Normal conjunctiva, sclera anicteric CV: RRR, no murmur noted, S1S2 present, no edema Pulm: Nonlabored respirations, Clear BBS, on room air ABD: Soft on palpation, ND/NT MSK: No joint tenderness Integumentary: No rashes Neuro: Normal speech, normal affect Vitals reviewed Plan: GAVIN on CKD-unknown baseline Hypertensive urgency Patient has been off of her medications for 2 months as she did not like the way they made her feel At home she is supposed to be on carvedilol, hydralazine and isosorbide per patient Reports hospitalization in July 2022 at [facility] in [place] at that time underwent renal biopsy and other testing had prolonged hospitalization 2 to 3 weeks Will attempt to retrieve records, patient instructed to try to activate patient portal Has not followed up with nephrology since then as she has not been able to get referral nephrology consulted Renal ultrasound- reports "No hydronephrosis is present. The bladder is unremarkable" echocardiogram reports "mild tricuspid regurgitation" Renal artery ultrasound negative for renal artery stenosis CT abdomen pelvis negative for acute findings, no hydronephrosis CT head/C-spine negative for acute findings Continue home meds carvedilol, hydralazine, isosorbide Initial blood pressure 209/150 Blood pressure still elevated but improving Will diurese overnight, Lasix 40 mg BID DVT PPX:heparin subq Code status:Full Discharge Plan: Home Plan to discharge in: 48 Hours
--- NOTE | 2024-02-16 21:23 | P.PN ---
Date of Service: 02/16/24 Vital Signs Temp Pulse Resp BP Pulse Ox 98.3 F 77 15 140/80 100 02/16/24 16:00 02/16/24 16:21 02/16/24 16:00 02/16/24 16:21 02/16/24 16:00 Medications Acetaminophen (Acetaminophen 325 Mg Tablet) 650 mg PO Q4HP PRN PRN Reason: Pain scale 2-4 (Mild) Last Admin: 02/16/24 16:20 Dose: 650 mg Hydrocodone Bitart/Acetaminophen (Hydrocodone/Apap 7.5/325 Mg Tab) 1 tab PO Q4H PRN PRN Reason: Pain scale 5-7 (Moderate) Last Admin: 02/15/24 20:53 Dose: 1 tab Carvedilol (Carvedilol 25 Mg Tab) 25 mg PO BIDWM [facility] Last Admin: 02/16/24 16:21 Dose: 25 mg Furosemide (Furosemide 40 Mg/4 Ml Vial) 40 mg IV BIDL [facility] Last Admin: 02/16/24 16:19 Dose: 40 mg Heparin Sodium (Porcine) (Heparin 5000 Unit/Ml 1 Ml Vial) 5,000 unit SQ Q12HR [facility] Last Admin: 02/16/24 08:24 Dose: 5,000 unit Hydralazine HCl (Hydralazine Hcl 25 Mg Tablet) 50 mg PO TID [facility] Last Admin: 02/16/24 13:04 Dose: 50 mg Isosorbide Dinitrate (Isosorbide Dinit 20 Mg Tab) 20 mg PO BID [facility] Last Admin: 02/16/24 08:24 Dose: 20 mg Labetalol HCl (Labetalol 20 Mg/4ml Syringe) 10 mg IV Q6H PRN PRN Reason: Titrate to SBP (MUST DEFINE) Ondansetron HCl (Ondansetron 4 Mg/2 Ml Vial) 4 mg IV Q6HP PRN PRN Reason: NAUSEA / VOMITING Last Admin: 02/16/24 06:37 Dose: 4 mg Microbiology Results 02/14/24 13:55 Throat Group A Streptococcus Rapid Screen - Final 02/14/24 13:55 Throat Culture & Sensitivity - Final NORMAL UPPER RESPIRATORY THAIS GROWN. 02/14/24 13:55 Nasopharnyx Influenza Type A Antigen Screen - Final 02/14/24 13:55 Nasopharnyx Influenza Type B Antigen Screen - Final Assessment/ Plan: Nephrology No dyspnea No chest pain No acute events overnight Vitals, medications, blood work and imaging reviewed in the chart General: In no apparent distress, Oriented x3, Cooperative HEENT: Atraumatic Neck: Supple Respiratory: Clear to auscultation bilaterally Cardiovascular: Regular rate/rhythm, Edema Gastrointestinal: Soft and benign, Non-distended Musculoskeletal: No clubbing, No contractures Integumentary: No rashes, No cyanosis Neurological: Normal speech Blood work reviewed in the chart. Imagings Data: EXAMINATION: CT ABDOMEN AND PELVIS WITHOUT CONTRAST CLINICAL INDICATION: Female, 28 years old.GAVIN, abd pain TECHNIQUE: CT abdomen and pelvis was performed, without IV contrast, as per department protocol. Axial, sagittal and coronal reconstructions were obtained. One or more of the following dose reduction techniques were used: Automated exposure control, adjustment of the mA and/or kV according to the patient size, and/or iterative reconstruction. Unless otherwise specified, incidental findings do not require dedicated imaging follow-up. [id number]. IV CONTRAST: Not administered. COMPARISON: 04/28/18 FINDINGS: The lack of intravenous contrast limits the sensitivity of this exam for evaluation of solid visceral organs, vascular structures, and retroperitoneum. LOWER CHEST: Mild cardiomegaly. LIVER: Normal in size and contour. No focal lesion. GALLBLADDER/BILE DUCTS: No biliary ductal dilatation.?Cholecystectomy. PANCREAS: No mass, ductal dilation, or litzy-pancreatic fluid. SPLEEN: Normal size. No focal lesion. ADRENALS: Normal; no mass. KIDNEYS AND URETERS: Normal size and contour. No hydronephrosis. URINARY BLADDER: Normal contour. GASTROINTESTINAL TRACT: Stomach is non-dilated. Small bowel has normal course and caliber. No colonic wall thickening or pericolonic inflammatory changes. PERITONEUM: No free fluid. ABDOMINAL AORTA AND OTHER VESSELS: Normal caliber aorta and IVC. REPRODUCTIVE ORGANS: No pathologic process. MUSCULOSKELETAL: No acute or suspicious osseous abnormality. ADDITIONAL FINDINGS: None. IMPRESSION: No acute or significant abnormalities in the abdomen or pelvis, with evaluation limited by lack of IV contrast. Normal appendix. EXAM: Chest Single View HISTORY: COUGH COMPARISON: 01/14/2013 FINDINGS: LUNGS/PLEURA: The lungs are clear. No pleural effusions or pneumothorax. No pulmonary edema. MEDIASTINUM: The mediastinal silhouette is within normal limits. CARDIAC: Cardiomegaly. UPPER ABDOMEN: No significant abnormality. BONES: No acute fracture. LINES/TUBES/OTHER: N/A IMPRESSION: No evidence of acute cardiopulmonary disease. EXAMINATION: CT CERVICAL SPINE WITHOUT CONTRAST CLINICAL INDICATION: Female, 28 years old. PAIN TECHNIQUE: Axial CT images through the cervical spine were obtained without intr avenous contrast. Sagittal and coronal reformatted images were created from the data set. One or more of the following dose reduction techniques were used: Automated exposure control, adjustment of t he mA and/or kV according to patient size, and/or iterative reconstruction. Unless otherwise specified, incidental findings do not require dedicated imaging follow-up. [id number]. COMPARISON: No prior exam. FINDINGS: ALIGNMENT: The cervical spine has normal alignment without scoliosis or spondylolisthesis. BONE: Vertebral body heights are maintained. No aggressive osseous lesions. DISCS: Disc heights are maintained. LEVELS: No significant spinal canal or neural foraminal stenosis. No visualized abnormality within the spinal canal. SOFT TISSUE: No significant abnormalities in the soft tissue of the neck. The visualized lung apices are clear. IMPRESSION: No acute cervical spine abnormalities. EXAMINATION: US RENAL DUPLEX CLINICAL INDICATION: Female, 28 years old. gavin, htn. TECHNIQUE: Real-time grayscale, color flow and spectral Doppler sonographic images were obtained of the bilateral renal arteries using a linear transducer. COMPARISON: Same day CT FINDINGS: AORTA: 112 cm/s RIGHT: Proximal renal artery: 41 cm/s Mid renal artery: 35 cm/s Distal renal artery: 27 cm/s Arcuate artery resistive index: 0.6 Renal/aortic ratio: 0.4 LEFT: Proximal renal artery: 62 cm/s Mid renal artery: 47 cm/s Distal renal artery: 56 cm/s Arcuate artery resistive index: 0.5 Renal/aortic ratio: 0.6 No hydronephrosis is present. The bladder is unremarkable. IMPRESSION: No evidence of renal artery stenosis bilaterally. LEFT VENTRICULAR WALL MOTION: NORMAL. DOPPLER/COLOR FLOW: NORMAL. COMMENTS: 1. NORMAL LEFT VENTRICUALR SYSTOLIC FUNCTION. LEFT VENTRICULAR EJECTION FRACTION 60%. NORMAL WALL MOTION. 2. NORMAL DIASTOLIC FUNCTION. Conclusions/Impression: Stage II GAVIN in the setting of HTN CKD III with Proteinuria -No NSAIDs -Doppler Renal US reviewed; No LESLIE -Request records from [facility] in [place] Hyperuricemia Hypertensive Urgency HTN with CKD -Continue Coreg -Continue Hydralazine -Continue Isosorbide Cardiomegaly Peripheral Edema -Low sodium diet -Start Lasix BID Hypoalbuminemia -Maintain nutrition Anemia in chronic illness -Monitor H&H -Retacrit prn Case reviewed with Dr. Ricci
[2024-02-16 23:38] LABS: Hepatitis B Surface Ab - Quant 3.18; Hepatitis B surface AG Interp. Nonreactive (Nonreactive)
[2024-02-16 23:39] LABS: Hepatitis C Virus Ab ND (Nonreactive)
[2024-02-16 23:40] LABS: HBsAG Nonreactive Report Report
[2024-02-17 08:16] LABS: Absolute Basophils 0.1 K/uL (0-0.5); Absolute Eosinophils 0.3 K/uL (0-0.5); Absolute Lymphocytes (CBC) 1.1 K/uL (0.7-4.9); Absolute Monocytes 0.7 K/uL (0.1-1.3); Absolute Neutrophil 5.6 K/uL (1.8-8.0); Basophils % 0.8 % (0-1.3); Eosinophils % 3.5 % (0-4.4); Hematocrit 34.7 % (36.0-45.0); Hemoglobin 11.2 g/dL (12.0-15.0); Lymphocytes % 14.5 % (15.3-44.8); MCH 28.7 pg (27.0-35.0); MCHC 32.5 g/dL (32.0-36.0); MCV 88.3 fL (80-100); MPV 7.7 fL (7.6-11.3); Monocytes % 8.7 % (3.3-12.3); Neutrophils % 72.5 % (41.7-73.7); Nucleated Red Blood Cells % 0.1 % (0-0); Platelets 401 thou/uL (152-406); RBC Red Blood Cell Count 3.93 M/uL (3.86-4.86); Red Cell Distribution Width 16.6 % (12.1-15.2)
[2024-02-17 08:31] LABS: Anion Gap 8.4 mEq/L (5.0-15.0); Magnesium 2.1 mg/dL (1.6-2.4); Potassium 3.4 mEq/L (3.5-5.1)
--- NOTE | 2024-02-17 15:05 | P.PN ---
Date of Service: 02/17/24 Subjective: Feeling well, c/o some dizziness and nausea returning blood pressure elevated again Recheck manually SBP 122 ROS: 10 point ROS as noted above, otherwise negative Physical exam GEN: Alert and oriented x3, NAD HEENT: Normal conjunctiva, sclera anicteric CV: Normal sinus rhythm, no murmur noted, S1S2 present, no edema Pulm: Symmetrical chest wall movement, Clear BBS, on room air ABD: Soft and benign on palpation, ND/NT, normal active bowel sounds MSK: No joint tenderness Integumentary: No rashes Neuro: Normal speech, normal affect Vitals reviewed Plan: GAVIN on CKD-unknown baseline Hypertensive urgency Patient has been off of her medications for 2 months as she did not like the way they made her feel At home she is supposed to be on carvedilol, hydralazine and isosorbide per patient Reports hospitalization in July 2022 at [facility] in [place] at that time underwent renal biopsy and other testing had prolonged hospitalization 2 to 3 weeks Records received Has not followed up with nephrology since then as she has not been able to get referral nephrology consulted- will review records from [facility] Renal ultrasound- reports "No hydronephrosis is present. The bladder is unremarkable" echocardiogram reports "mild tricuspid regurgitation" Renal artery ultrasound negative for renal artery stenosis CT abdomen pelvis negative for acute findings, no hydronephrosis CT head/C-spine negative for acute findings Continue home meds carvedilol, hydralazine, isosorbide Initial blood pressure 209/150 Blood pressure still elevated but improving Will diurese overnight, Lasix 40 mg BID Blood pressure elevated this morning, responded well to p.o. medication DVT PPX:heparin subq Code status:Full Discharge Plan: Home Plan to discharge in: 48 Hours
--- NOTE | 2024-02-17 21:47 | P.PN ---
Date of Service: 02/17/24 Vital Signs Temp Pulse Resp BP Pulse Ox 98.6 F 77 18 145/80 H 100 02/17/24 20:00 02/17/24 20:00 02/17/24 20:00 02/17/24 20:00 02/17/24 20:00 Medications Acetaminophen (Acetaminophen 325 Mg Tablet) 650 mg PO Q4HP PRN PRN Reason: Pain scale 2-4 (Mild) Last Admin: 02/16/24 16:20 Dose: 650 mg Hydrocodone Bitart/Acetaminophen (Hydrocodone/Apap 7.5/325 Mg Tab) 1 tab PO Q4H PRN PRN Reason: Pain scale 5-7 (Moderate) Last Admin: 02/17/24 11:48 Dose: 1 tab Carvedilol (Carvedilol 25 Mg Tab) 25 mg PO BIDWM [facility] Last Admin: 02/17/24 17:10 Dose: 25 mg Furosemide (Furosemide 40 Mg Tablet) 40 mg PO DAILY [facility] Heparin Sodium (Porcine) (Heparin 5000 Unit/Ml 1 Ml Vial) 5,000 unit SQ Q12HR [facility] Last Admin: 02/17/24 20:33 Dose: 5,000 unit Hydralazine HCl (Hydralazine Hcl 25 Mg Tablet) 50 mg PO TID [facility] Last Admin: 02/17/24 20:33 Dose: 50 mg Isosorbide Dinitrate (Isosorbide Dinit 20 Mg Tab) 20 mg PO BID [facility] Last Admin: 02/17/24 20:33 Dose: 20 mg Labetalol HCl (Labetalol 20 Mg/4ml Syringe) 10 mg IV Q6H PRN PRN Reason: Titrate to SBP (MUST DEFINE) Ondansetron HCl (Ondansetron 4 Mg/2 Ml Vial) 4 mg IV Q6HP PRN PRN Reason: NAUSEA / VOMITING Last Admin: 02/16/24 06:37 Dose: 4 mg Microbiology Results 02/14/24 13:55 Throat Group A Streptococcus Rapid Screen - Final 02/14/24 13:55 Throat Culture & Sensitivity - Final NORMAL UPPER RESPIRATORY THAIS GROWN. 02/14/24 13:55 Nasopharnyx Influenza Type A Antigen Screen - Final 02/14/24 13:55 Nasopharnyx Influenza Type B Antigen Screen - Final Assessment/ Plan: Nephrology No dyspnea No chest pain Dizziness this morning No acute events overnight Vitals, medications, blood work and imaging reviewed in the chart General: In no apparent distress, Oriented x3, Cooperative HEENT: Atraumatic Neck: Supple Respiratory: Clear to auscultation bilaterally Cardiovascular: Regular rate/rhythm, Edema Gastrointestinal: Soft and benign, Non-distended Musculoskeletal: No clubbing, No contractures Integumentary: No rashes, No cyanosis Neurological: Normal speech Blood work reviewed in the chart. Imagings Data: EXAMINATION: CT ABDOMEN AND PELVIS WITHOUT CONTRAST CLINICAL INDICATION: Female, 28 years old.GAVIN, abd pain TECHNIQUE: CT abdomen and pelvis was performed, without IV contrast, as per department protocol. Axial, sagittal and coronal reconstructions were obtained. One or more of the following dose reduction techniques were used: Automated exposure control, adjustment of the mA and/or kV according to the patient size, and/or iterative reconstruction. Unless otherwise specified, incidental findings do not require dedicated imaging follow-up. [id number]. IV CONTRAST: Not administered. COMPARISON: 04/28/18 FINDINGS: The lack of intravenous contrast limits the sensitivity of this exam for evaluation of solid visceral organs, vascular structures, and retroperitoneum. LOWER CHEST: Mild cardiomegaly. LIVER: Normal in size and contour. No focal lesion. GALLBLADDER/BILE DUCTS: No biliary ductal dilatation.?Cholecystectomy. PANCREAS: No mass, ductal dilation, or litzy-pancreatic fluid. SPLEEN: Normal size. No focal lesion. ADRENALS: Normal; no mass. KIDNEYS AND URETERS: Normal size and contour. No hydronephrosis. URINARY BLADDER: Normal contour. GASTROINTESTINAL TRACT: Stomach is non-dilated. Small bowel has normal course and caliber. No colonic wall thickening or pericolonic inflammatory changes. PERITONEUM: No free fluid. ABDOMINAL AORTA AND OTHER VESSELS: Normal caliber aorta and IVC. REPRODUCTIVE ORGANS: No pathologic process. MUSCULOSKELETAL: No acute or suspicious osseous abnormality. ADDITIONAL FINDINGS: None. IMPRESSION: No acute or significant abnormalities in the abdomen or pelvis, with evaluation limited by lack of IV contrast. Normal appendix. EXAM: Chest Single View HISTORY: COUGH COMPARISON: 01/14/2013 FINDINGS: LUNGS/PLEURA: The lungs are clear. No pleural effusions or pneumothorax. No pulmonary edema. MEDIASTINUM: The mediastinal silhouette is within normal limits. CARDIAC: Cardiomegaly. UPPER ABDOMEN: No significant abnormality. BONES: No acute fracture. LINES/TUBES/OTHER: N/A IMPRESSION: No evidence of acute cardiopulmonary disease. EXAMINATION: CT CERVICAL SPINE WITHOUT CONTRAST CLINICAL INDICATION: Female, 28 years old. PAIN TECHNIQUE: Axial CT images through the cervical spine were obtained without intravenous contrast. Sagittal and coronal reformatted images were created from the data set. One or more of the following dose reduction techniques were used: Automated exposure control, adjustment of the mA and/or kV according to patient size, and/or iterative reconstruction. Unless otherwise specified, incidental findings do not require dedicated imaging follow-up. [id number]. COMPARISON: No prior exam. FINDINGS: ALIGNMENT: The cervical spine has normal alignment without scoliosis or spondylolisthesis. BONE: Vertebral body heights are maintained. No aggressive osseous lesions. DISCS: Disc heights are maintained. LEVELS: No significant spinal canal or neural foraminal stenosis. No visualized abnormality within the spinal canal. SOFT TISSUE: No significant abnormalities in the soft tissue of the neck. The visualized lung apices are clear. IMPRESSION: No acute cervical spine abnormalities. EXAMINATION: US RENAL DUPLEX CLINICAL INDICATION: Female, 28 years old. gavin, htn. TECHNIQUE: Real-time grayscale, color flow and spectral Doppler sonographic images were obtained of the bilateral renal arteries using a linear transducer. COMPARISON: Same day CT FINDINGS: AORTA: 112 cm/s RIGHT: Proximal renal artery: 41 cm/s Mid renal artery: 35 cm/s Distal renal artery: 27 cm/s Arcuate artery resistive index: 0.6 Renal/aortic ratio: 0.4 LEFT: Proximal renal artery: 62 cm/s Mid renal artery: 47 cm/s Distal renal artery: 56 cm/s Arcuate artery resistive index: 0.5 Renal/aortic ratio: 0.6 No hydronephrosis is present. The bladder is unremarkable. IMPRESSION: No evidence of renal artery stenosis bilaterally. LEFT VENTRICULAR WALL MOTION: NORMAL. DOPPLER/COLOR FLOW: NORMAL. COMMENTS: 1. NORMAL LEFT VENTRICUALR SYSTOLIC FUNCTION. LEFT VENTRICULAR EJECTION FRACTION 60%. NORMAL WALL MOTION. 2. NORMAL DIASTOLIC FUNCTION. Conclusions/Impression: Stage II GAVIN in the setting of HTN CKD III with Proteinuria -No NSAIDs -Doppler Renal US reviewed; No LESLIE -Request records from [facility] in [place] Hyperuricemia Hypertensive Urgency HTN with CKD -Continue Coreg -Continue Hydralazine -Continue Isosorbide Cardiomegaly Peripheral Edema -Low sodium diet -Reduce Lasix Daily Hypoalbuminemia -Maintain nutrition Anemia in chronic illness -Monitor H&H -Retacrit prn Case reviewed with Dr. Ricci
[2024-02-18] MEDS: FUROSEMIDE 40 MG TABLET PO SCH (08:52)
[2024-02-18 11:55] VITALS: BP 129/75; TEMP 97.8
--- NOTE | 2024-02-18 13:21 | P.DS ---
Admission Date: 02/14/24 Discharge Date: 02/18/24 Reason for Admission: GAVIN, hypertensive urgency Consultations: Dr. Lexi Malone Brief History of Present Illness: 28-year-old female with history of CKD, hypertension after her second when she developed severe preeclampsia presented to the emergency department chief complaint of abdominal pain. She reports after her second in 2018 when she had severe preeclampsia she began suffering from elevated blood pressures, in July 2022 she was seen in the [facility] in [place] and had a prolonged hospitalization for GAVIN/CKD and elevated blood pressures. She reports that she had a renal biopsy, echocardiogram, was seen by kidney doctors and heart doctors and subsequently discharged to follow-up outpatient but is unable to follow-up but she never got a referral. She also reports that she stopped taking her blood pressure medications about 2 months ago as she did not like the way they made her feel, she has not been able to follow-up with a program professional since her hospitalization in 2022 in [place]. She is unsure what her normal renal function is, does not check her blood pressure regularly. Patient was evaluated in the ER labs are significant for creatinine of 3.07, GFR of 21 hemoglobin 11.2 hematocrit 33.4 UA is pending chest x-ray negative for acute findings. ED provider was admit patient for suspected GAVIN, hypertensive urgency. Patient blood pressure was 209/151 he was given IV hydralazine and labetalol, blood pressure significant proved at around 160/115. Patient denies any chest pain, headache or other signs of hypertensive emergency. Hospital Course: Stage II GAVIN in the setting of HTN with CKD III with Proteinuria. Patient should avoid NSAIDs. The renal ultrasound did not show any renal artery stenosis. Records from [facility] in [place] show some glomerular sclerosis, immune complexes, and tubular injury. Will need to follow-up with Dr. Malone for repeat biopsy and treatment. Please maintain good nutritional balance with low sodium. As your blood pressure was very high on admission, you need to continue Coreg, hydralazine, and isosorbide. Follow-up with Dr. Malone in 1 to 2 weeks. Please return to the emergency department immediately for worsening symptoms, additional swelling, or vomiting. <Chantal Day - Last Filed: 02/18/24 14:16> Admission Date: 02/14/24 Discharge Date: 02/21/24 Hospital Course: Discharge diagnosis GAVIN on CKD-unknown baseline Hypertensive urgency <kasie drake - Last Filed: 02/21/24 16:41> Disposition: ROUTINE DISCHARGE Discharge Condition: GOOD Vital Signs/Physical Exam: Temp Pulse Resp BP Pulse Ox 97.8 F 82 20 129/75 100 02/18/24 11:54 02/18/24 11:54 02/18/24 11:54 02/18/24 11:54 02/18/24 11:54 General: Alert, In no apparent distress, Oriented x3 HEENT: Atraumatic, Normocephalic Neck: Supple Respiratory: Normal air movement Cardiovascular: No edema, Normal pulses, Regular rate/rhythm, Normal S1 S2 Capillary refill: <2 Seconds Gastrointestinal: Soft and benign Musculoskeletal: No clubbing, No swelling Integumentary: No rashes Neurological: Normal speech, Normal tone, Normal affect Lymphatics: No axilla or inguinal lymphadenopathy External genitalia: Deferred Rectal: Deferred Laboratory Data at Discharge: WBC 7.70 thou/uL (4.3-10.9) 02/17/24 08:02 Hgb 11.2 g/dL (12.0-15.0) L 02/17/24 08:02 Hct 34.7 % (36.0-45.0) L 02/17/24 08:02 Plt Count 401 thou/uL (152-406) 02/17/24 08:02 Sodium 137 mEq/L (136-145) 02/17/24 08:02 Potassium 3.4 mEq/L (3.5-5.1) L 02/17/24 08:02 BUN 28 mg/dL (7-18) H 02/17/24 08:02 Creatinine 3.22 mg/dL (0.55-1.02) H 02/17/24 08:02 Glucose 100 mg/dL (74-106) 02/17/24 08:02 Uric Acid 9.7 mg/dL (2.6-6.0) H 02/16/24 06:40 Phosphorus 3.3 mg/dL (2.5-4.9) 02/16/24 06:40 Magnesium 2.1 mg/dL (1.6-2.4) 02/17/24 08:02 Total Bilirubin 0.3 mg/dL (0.2-1.0) 02/16/24 06:40 AST 27 U/L (15-37) 02/16/24 06:40 ALT 76 U/L (13-56) H 02/16/24 06:40 Alkaline Phosphatase 92 U/L (45-117) 02/16/24 06:40 <Day,Chantal Reji - Last Filed: 02/18/24 14:16> Vital Signs/Physical Exam: Temp Pulse Resp BP Pulse Ox 97.8 F 82 20 129/75 100 02/18/24 11:54 02/18/24 11:54 02/18/24 11:54 02/18/24 11:54 02/18/24 11:54 Laboratory Data at Discharge: WBC 7.70 thou/uL (4.3-10.9) 02/17/24 08:02 Hgb 11.2 g/dL (12.0-15.0) L 02/17/24 08:02 Hct 34.7 % (36.0-45.0) L 02/17/24 08:02 Plt Count 401 thou/uL (152-406) 02/17/24 08:02 Sodium 137 mEq/L (136-145) 02/17/24 08:02 Potassium 3.4 mEq/L (3.5-5.1) L 02/17/24 08:02 BUN 28 mg/dL (7-18) H 02/17/24 08:02 Creatinine 3.22 mg/dL (0.55-1.02) H 02/17/24 08:02 Glucose 100 mg/dL (74-106) 02/17/24 08:02 Uric Acid 9.7 mg/dL (2.6-6.0) H 02/16/24 06:40 Phosphorus 3.3 mg/dL (2.5-4.9) 02/16/24 06:40 Magnesium 2.1 mg/dL (1.6-2.4) 02/17/24 08:02 Total Bilirubin 0.3 mg/dL (0.2-1.0) 02/16/24 06:40 AST 27 U/L (15-37) 02/16/24 06:40 ALT 76 U/L (13-56) H 02/16/24 06:40 Alkaline Phosphatase 92 U/L (45-117) 02/16/24 06:40 <kasie drake - Last Filed: 02/21/24 16:41> Diet: Low sodium Activity: Ad leslye <Chantal Day - Last Filed: 02/18/24 14:16> <kasie drake - Last Filed: 02/21/24 16:41> Home Medications: Carvedilol [Coreg] 25 tab PO BID 02/14/24 Hydralazine [Apresoline] 50 mg PO TID 02/14/24 Isosorbide Dinitrate 20 mg PO BID 02/14/24 Physician Discharge Instructions: Stage II GAVIN in the setting of HTN with CKD III with Proteinuria. Patient should avoid NSAIDs. The renal ultrasound did not show any renal artery stenosis. Records from [facility] [place] in [place] show some glomerular sclerosis, immune complexes, and tubular injury. Will need to follow-up with Dr. Malone for repeat biopsy and treatment. Please maintain good nutritional balance with low sodium. As your blood pressure was very high on admission, you need to continue Coreg, hydralazine, and isosorbide. Follow-up with Dr. Malone in 1 to 2 weeks. Please return to the emergency department immediately for worsening symptoms, additional swelling, or vomiting. Followup: Srinivas Malone DO [ACTIVE - CAN ADMIT] - 1-2 Weeks PETE TORRES [Primary Care Provider] - 1-2 Weeks
[2024-02-18 14:11] VITALS: O2SAT 99
--- NOTE | 2024-02-18 22:00 | P.PN ---
Date of Service: 02/18/24 Vital Signs Temp Pulse Resp BP Pulse Ox 97.8 F 82 20 129/75 100 02/18/24 11:54 02/18/24 11:54 02/18/24 11:54 02/18/24 11:54 02/18/24 11:54 Microbiology Results 02/14/24 13:55 Throat Group A Streptococcus Rapid Screen - Final 02/14/24 13:55 Throat Culture & Sensitivity - Final NORMAL UPPER RESPIRATORY THAIS GROWN. 02/14/24 13:55 Nasopharnyx Influenza Type A Antigen Screen - Final 02/14/24 13:55 Nasopharnyx Influenza Type B Antigen Screen - Final Assessment/ Plan: Nephrology No dyspnea No chest pain Feeling better No acute events overnight Vitals, medications, blood work and imaging reviewed in the chart General: In no apparent distress, Oriented x3, Cooperative HEENT: Atraumatic Neck: Supple Respiratory: Clear to auscultation bilaterally Cardiovascular: Regular rate/rhythm, Edema Gastrointestinal: Soft and benign, Non-distended Musculoskeletal: No clubbing, No contractures Integumentary: No rashes, No cyanosis Neurological: Normal speech Blood work reviewed in the chart. Imagings Data: EXAMINATION: CT ABDOMEN AND PELVIS WITHOUT CONTRAST CLINICAL INDICATION: Female, 28 years old.GAVIN, abd pain TECHNIQUE: CT abdomen and pelvis was performed, without IV contrast, as per department protocol. Axial, sagittal and coronal reconstructions were obtained. One or more of the following dose reduction techniques were used: Automated exposure control, adjustment of the mA and/or kV according to the patient size, and/or iterative reconstruction. Unless otherwise specified, incidental findings do not require dedicated imaging follow-up. [id number]. IV CONTRAST: Not administered. COMPARISON: 04/28/18 FINDINGS: The lack of intravenous contrast limits the sensitivity of this exam for evaluation of solid visceral organs, vascular structures, and retroperitoneum. LOWER CHEST: Mild cardiomegaly. LIVER: Normal in size and contour. No focal lesion. GALLBLADDER/BILE DUCTS: No biliary ductal dilatation.?Cholecystectomy. PANCREAS: No mass, ductal dilation, or litzy-pancreatic fluid. SPLEEN: Normal size. No focal lesion. ADRENALS: Normal; no mass. KIDNEYS AND URETERS: Normal size and contour. No hydronephrosis. URINARY BLADDER: Normal contour. GASTROINTESTINAL TRACT: Stomach is non-dilated. Small bowel has normal course and caliber. No colonic wall thickening or pericolonic inflammatory changes. PERITONEUM: No free fluid. ABDOMINAL AORTA AND OTHER VESSELS: Normal caliber aorta and IVC. REPRODUCTIVE ORGANS: No pathologic process. MUSCULOSKELETAL: No acute or suspicious osseous abnormality. ADDITIONAL FINDINGS: None. IMPRESSION: No acute or significant abnormalities in the abdomen or pelvis, with evaluation limited by lack of IV contrast. Normal appendix. EXAM: Chest Single View HISTORY: COUGH COMPARISON: 01/14/2013 FINDINGS: LUNGS/PLEURA: The lungs are clear. No pleural effusions or pneumothorax. No pulmonary edema. MEDIASTINUM: The mediastinal silhouette is within normal limits. CARDIAC: Cardiomegaly. UPPER ABDOMEN: No significant abnormality. BONES: No acute fracture. LINES/TUBES/OTHER: N/A IMPRESSION: No evidence of acute cardiopulmonary disease. EXAMINATION: CT CERVICAL SPINE WITHOUT CONTRAST CLINICAL INDICATION: Female, 28 years old. PAIN TECHNIQUE: Axial CT images through the cervical spine were obtained without intravenous contrast. Sagittal and coronal reformatted images were created from the data set. One or more of the following dose reduction techniques were used: Automated exposure control, adjustment of the mA and/or kV according to patient size, and/or iterative reconstruction. Unless otherwise specified, incidental findings do not require dedicated imaging follow-up. [id number]. COMPARISON: No prior exam. FINDINGS: ALIGNMENT: The cervical spine has normal alignment without scoliosis or spondylolisthesis. BONE: Vertebral body heights are maintained. No aggressive osseous lesions. DISCS: Disc heights are maintained. LEVELS: No significant spinal canal or neural foraminal stenosis. No visualized abnormality within the spinal canal. SOFT TISSUE: No significant abnormalities in the soft tissue of the neck. The visualized lung apices are clear. IMPRESSION: No acute cervical spine abnormalities. EXAMINATION: US RENAL DUPLEX CLINICAL INDICATION: Female, 28 years old. gavin, htn. TECHNIQUE: Real-time grayscale, color flow and spectral Doppler sonographic images were obtained of the bilateral renal arteries using a linear transducer. COMPARISON: Same day CT FINDINGS: AORTA: 112 cm/s RIGHT: Proximal renal artery: 41 cm/s Mid renal artery: 35 cm/s Distal renal artery: 27 cm/s Arcuate artery resistive index: 0.6 Renal/aortic ratio: 0.4 LEFT: Proximal renal artery: 62 cm/s Mid renal artery: 47 cm/s Distal renal artery: 56 cm/s Arcuate artery resistive index: 0.5 Renal/aortic ratio: 0.6 No hydronephrosis is present. The bladder is unremarkable. IMPRESSION: No evidence of renal artery stenosis bilaterally. LEFT VENTRICULAR WALL MOTION: NORMAL. DOPPLER/COLOR FLOW: NORMAL. COMMENTS: 1. NORMAL LEFT VENTRICUALR SYSTOLIC FUNCTION. LEFT VENTRICULAR EJECTION FRACTION 60%. NORMAL WALL MOTION. 2. NORMAL DIASTOLIC FUNCTION. 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 Ricci
[2024-02-19 13:43] LABS: Abnormal Protein Band 1 REPORT; Alpha-1-Globulins 0.3 g/dL (0.2-0.3); Alpha-2-Globulins 0.6 g/dL (0.5-0.9); Beta 1 Globulin 0.5 g/dL (0.4-0.6); Gamma Globulins 0.9 g/dL (0.8-1.7); INTERPRETATION REPORT; Total Protein 5.7 g/dL (6.1-8.1)
--- NOTE | 2024-02-19 16:07 | EKG ---
Test Date: 2024-02-14 Test Time: 14:00:38 Egg Caser: ROS MEASUREMENT RESULTS: Intervals: Rate: 118 CA: 136 QRSD: 94 QT: 366 QTc: 513 [place]: P: 67 CA: 136 QRS: 64 T: 75 INTERPRETIVE STATEMENTS: Sinus tachycardia Biatrial enlargement Abnormal ECG Compared to ECG 05/12/2013 11:29:08 Atrial abnormality now present Sinus rhythm no longer present Electronically Signed On 02-19-24 15:57:12 [employer]ON S[employer] by Oscar Elliott
[2024-02-22 11:50] LABS: Anti-Nuclear Antibody Screen Negative (Negative)
[2024-02-22 20:08] LABS: Complement C3 136 mg/dL (83-193)
== END 2024-02-18 15:27 | disposition home or self-care (01) | DRG 305 ==
LOC: ER 12:20 → ERHOLD 16:34 → 4TH 19:45
PROVIDERS: ADMIT Hospitalist; ATTEND Internal Medicine
DX: I16.0 Hypertensive urgency (principal); N17.9 Acute kidney failure, unspecified; Z68.42 Body mass index [BMI] 45.0-49.9, adult; E66.9 Obesity, unspecified; I12.9 Hypertensive chronic kidney disease with stage 1 through stage 4 chronic kidney disease, or unspecified chronic kidney disease; N18.30 Chronic kidney disease, stage 3 unspecified; D63.1 Anemia in chronic kidney disease; E87.6 Hypokalemia; E88.09 Other disorders of plasma-protein metabolism, not elsewhere classified; Z11.52 Encounter for screening for COVID-19; Z90.49 Acquired absence of other specified parts of digestive tract; Z79.02 Long term (current) use of antithrombotics/antiplatelets; Z79.899 Other long term (current) drug therapy; Z91.148 Patient's other noncompliance with medication regimen for other reason
CPT/HCPCS: 36415; 71045; 72125; 74176; 80048; 80076; 81001; 81025; 82043; 82550; 82570; 83735; 83880; 84100; 84156; 84165; 84436; 84439; 84443; 84484; 84550; 85025; 86038; 86160; 86335; 86706; 87070; 87081; 87340; 87804; 87811; 93005; 93306; 93975; 96365; 96366; 96375; 99285; J0360; J1644; J1940; J2405